=== PATIENT | male | born 1975 | race Caucasian/White ===

== ENCOUNTER 2017-10-13 12:34 | Outpatient (RCR) | payer BC, SELFPAY ==
[2017-10-13 13:51] LABS: International Normalized Ratio 2.2; Prothrombin Time (Protime)PT. 23.8 SECONDS (11.7-14.9)
== END 2017-10-13 12:45 | disposition home or self-care (01) ==
LOC: LAB 12:34
PROVIDERS: Family Provider Family Medicine; PCP Family Medicine; Visit Provider Internal Medicine Cardiovascular Disease
DX: Z95.2 Presence of prosthetic heart valve (principal); Z79.01 Long term (current) use of anticoagulants
CPT/HCPCS: 36415; 85610

== ENCOUNTER 2017-11-17 12:25 | Outpatient (RCR) | payer BC, SELFPAY ==
[2017-11-17 13:21] LABS: International Normalized Ratio 2.7; Prothrombin Time (Protime)PT. 27.9 SECONDS (11.7-14.9)
== END 2017-11-17 13:00 | disposition home or self-care (01) ==
LOC: LAB 12:25
PROVIDERS: Family Provider Family Medicine; PCP Family Medicine; Visit Provider Internal Medicine Cardiovascular Disease
DX: Z95.2 Presence of prosthetic heart valve (principal); Z79.01 Long term (current) use of anticoagulants
CPT/HCPCS: 36415; 85610

== ENCOUNTER 2017-12-12 11:46 | Outpatient (RCR) | payer BC, SELFPAY ==
[2017-11-28 12:49] LABS: International Normalized Ratio 1.7
[2017-12-12 13:33] LABS: International Normalized Ratio 2.6; Prothrombin Time (Protime)PT. 28.2 SECONDS (11.7-14.9)
== END 2017-12-12 12:00 | disposition home or self-care (01) ==
LOC: LAB 11:46
PROVIDERS: Family Provider Family Medicine; PCP Family Medicine; Visit Provider Internal Medicine Cardiovascular Disease
DX: Z95.2 Presence of prosthetic heart valve (principal); Z79.01 Long term (current) use of anticoagulants
CPT/HCPCS: 36415; 85610

== ENCOUNTER 2018-01-10 11:50 | Outpatient (RCR) | payer BC, SELFPAY ==
[2018-01-10 12:38] LABS: International Normalized Ratio 2.5; Prothrombin Time (Protime)PT. 27.5 SECONDS (11.7-14.9)
== END 2018-01-10 12:00 | disposition home or self-care (01) ==
LOC: LAB 11:50
PROVIDERS: Family Provider Family Medicine; PCP Family Medicine; Visit Provider Internal Medicine Cardiovascular Disease
DX: Z95.2 Presence of prosthetic heart valve (principal); Z79.01 Long term (current) use of anticoagulants
CPT/HCPCS: 36415; 85610

== ENCOUNTER 2018-02-10 12:18 | Outpatient (RCR) | payer BC, SELFPAY ==
[2018-02-10 12:54] LABS: International Normalized Ratio 2.9; Prothrombin Time (Protime)PT. 30.6 SECONDS (11.7-14.9)
== END 2018-02-10 13:00 | disposition home or self-care (01) ==
LOC: LAB 12:18
PROVIDERS: Family Provider Family Medicine; PCP Family Medicine; Visit Provider Internal Medicine Cardiovascular Disease
DX: Z95.2 Presence of prosthetic heart valve (principal); Z79.01 Long term (current) use of anticoagulants
CPT/HCPCS: 36415; 85610

== ENCOUNTER 2018-03-14 12:18 | Outpatient (RCR) | payer BC, SELFPAY ==
[2018-03-14 14:35] LABS: International Normalized Ratio 2.7; Prothrombin Time (Protime)PT. 28.6 SECONDS (11.7-14.9)
== END 2018-03-14 13:00 | disposition home or self-care (01) ==
LOC: LAB 12:18
PROVIDERS: Family Provider Family Medicine; PCP Family Medicine; Visit Provider Internal Medicine Cardiovascular Disease
DX: Z95.2 Presence of prosthetic heart valve (principal); Z79.01 Long term (current) use of anticoagulants
CPT/HCPCS: 36415; 85610

== ENCOUNTER 2018-04-14 11:46 | Outpatient (RCR) | payer BC, SELFPAY ==
[2018-04-14 12:54] LABS: International Normalized Ratio 2.7; Prothrombin Time (Protime)PT. 28.6 SECONDS (11.7-14.9)
== END 2018-04-14 13:00 | disposition home or self-care (01) ==
LOC: LAB 11:46
PROVIDERS: Family Provider Family Medicine; PCP Family Medicine; Visit Provider Internal Medicine Cardiovascular Disease
DX: Z95.2 Presence of prosthetic heart valve (principal); Z79.01 Long term (current) use of anticoagulants
CPT/HCPCS: 36415; 85610

== ENCOUNTER 2018-05-18 12:55 | Outpatient (RCR) | payer BC, SELFPAY ==
[2018-05-18 13:43] LABS: International Normalized Ratio 2.4; Prothrombin Time (Protime)PT. 26.5 SECONDS (11.7-14.9)
== END 2018-05-18 14:00 | disposition home or self-care (01) ==
LOC: LAB 12:55
PROVIDERS: Family Provider Family Medicine; PCP Family Medicine; Visit Provider Internal Medicine Cardiovascular Disease
DX: Z95.2 Presence of prosthetic heart valve (principal); Z79.01 Long term (current) use of anticoagulants
CPT/HCPCS: 36415; 85610

== ENCOUNTER 2018-06-23 13:28 | Outpatient (RCR) | payer BC, SELFPAY ==
[2018-06-23 14:42] LABS: International Normalized Ratio 2.4
== END 2018-06-23 15:00 | disposition home or self-care (01) ==
LOC: LAB 13:28
PROVIDERS: Family Provider Family Medicine; PCP Family Medicine; Visit Provider Internal Medicine Cardiovascular Disease
DX: Z95.2 Presence of prosthetic heart valve (principal); Z79.01 Long term (current) use of anticoagulants
CPT/HCPCS: 36415; 85610

== ENCOUNTER 2018-07-24 12:50 | Outpatient (RCR) | payer BC, SELFPAY ==
[2018-07-24 13:30] LABS: International Normalized Ratio 2.5
== END 2018-07-24 14:00 | disposition home or self-care (01) ==
LOC: LAB 12:50
PROVIDERS: Family Provider Family Medicine; PCP Family Medicine; Referring Provider Internal Medicine Cardiovascular Disease; Visit Provider Internal Medicine Cardiovascular Disease
DX: Z95.2 Presence of prosthetic heart valve (principal); Z79.01 Long term (current) use of anticoagulants
CPT/HCPCS: 36415; 85610

== ENCOUNTER 2018-08-29 12:20 | Outpatient (RCR) | payer BC, SELFPAY ==
[2018-08-29 13:52] LABS: International Normalized Ratio 2.7; Prothrombin Time (Protime)PT. 28.5 SECONDS (11.7-14.9)
== END 2018-08-29 13:00 | disposition home or self-care (01) ==
LOC: LAB 12:20
PROVIDERS: Family Provider Family Medicine; PCP Family Medicine; Referring Provider Internal Medicine Cardiovascular Disease; Visit Provider Internal Medicine Cardiovascular Disease
DX: Z95.2 Presence of prosthetic heart valve (principal); Z79.01 Long term (current) use of anticoagulants
CPT/HCPCS: 36415; 85610

== ENCOUNTER 2018-09-28 11:48 | Outpatient (RCR) | payer BC, SELFPAY ==
[2018-09-28 13:21] LABS: International Normalized Ratio 2.5
== END 2018-09-28 12:00 | disposition home or self-care (01) ==
LOC: LAB 11:48
PROVIDERS: Family Provider Family Medicine; PCP Family Medicine; Referring Provider Internal Medicine Cardiovascular Disease; Visit Provider Internal Medicine Cardiovascular Disease
DX: Z95.2 Presence of prosthetic heart valve (principal); Z79.01 Long term (current) use of anticoagulants
CPT/HCPCS: 36415; 85610

== ENCOUNTER 2018-10-30 11:43 | Outpatient (RCR) | payer BC, SELFPAY ==
[2018-10-16 15:39] VITALS: BMI 32.7
[2018-10-30 12:49] LABS: International Normalized Ratio 2.2; Prothrombin Time (Protime)PT. 24.3 SECONDS (11.7-14.9)
== END 2018-11-23 14:20 | disposition home or self-care (01) ==
LOC: LAB 11:43
PROVIDERS: Family Provider Family Medicine; PCP Family Medicine; Referring Provider Internal Medicine Cardiovascular Disease; Visit Provider Internal Medicine Cardiovascular Disease
DX: I47.1 Supraventricular tachycardia (principal); Z95.2 Presence of prosthetic heart valve; Z79.01 Long term (current) use of anticoagulants
CPT/HCPCS: 36415; 85610

== ENCOUNTER 2018-11-27 12:20 | Outpatient (RCR) | payer BC, SELFPAY ==
[2018-10-16 15:39] VITALS: BMI 32.7
[2018-11-27 13:57] LABS: International Normalized Ratio 2.8; Prothrombin Time (Protime)PT. 29.9 SECONDS (11.7-14.9)
== END 2018-11-27 13:20 | disposition home or self-care (01) ==
LOC: LAB 12:20
PROVIDERS: Family Provider Family Medicine; PCP Family Medicine; Referring Provider Internal Medicine Cardiovascular Disease; Visit Provider Internal Medicine Cardiovascular Disease
DX: I47.1 Supraventricular tachycardia (principal); Z95.2 Presence of prosthetic heart valve; Z79.01 Long term (current) use of anticoagulants
CPT/HCPCS: 36415; 85610

== ENCOUNTER 2018-12-26 11:48 | Outpatient (RCR) | payer BC, SELFPAY ==
[2018-10-16 15:39] VITALS: BMI 32.7
[2018-12-26 13:48] LABS: International Normalized Ratio 2.5; Prothrombin Time (Protime)PT. 26.9 SECONDS (11.7-14.9)
== END 2019-01-23 16:00 | disposition home or self-care (01) ==
LOC: LAB 11:48
PROVIDERS: Family Provider Family Medicine; PCP Family Medicine; Referring Provider Internal Medicine Cardiovascular Disease; Visit Provider Internal Medicine Cardiovascular Disease
DX: I47.1 Supraventricular tachycardia (principal); Z95.2 Presence of prosthetic heart valve; Z79.01 Long term (current) use of anticoagulants
CPT/HCPCS: 36415; 85610

== ENCOUNTER 2019-01-30 11:46 | Outpatient (RCR) | payer BC, SELFPAY ==
[2018-10-16 15:39] VITALS: BMI 32.7
[2019-01-30 13:15] LABS: International Normalized Ratio 2.4; Prothrombin Time (Protime)PT. 26.3 SECONDS (11.7-14.9)
== END 2019-01-30 12:46 | disposition home or self-care (01) ==
LOC: LAB 11:46
PROVIDERS: Family Provider Family Medicine; PCP Family Medicine; Referring Provider Internal Medicine Cardiovascular Disease; Visit Provider Internal Medicine Cardiovascular Disease
DX: I47.1 Supraventricular tachycardia (principal); Z95.2 Presence of prosthetic heart valve; Z79.01 Long term (current) use of anticoagulants
CPT/HCPCS: 36415; 85610

== ENCOUNTER 2019-03-01 11:59 | Outpatient (RCR) | payer BC, SELFPAY ==
[2018-10-16 15:39] VITALS: BMI 32.7
[2019-03-01 13:16] LABS: International Normalized Ratio 2.8; Prothrombin Time (Protime)PT. 29.3 SECONDS (11.7-14.9)
== END 2019-03-01 12:00 | disposition home or self-care (01) ==
LOC: LAB 11:59
PROVIDERS: Family Provider Family Medicine; PCP Family Medicine; Referring Provider Internal Medicine Cardiovascular Disease; Visit Provider Internal Medicine Cardiovascular Disease
DX: I47.1 Supraventricular tachycardia (principal); Z95.2 Presence of prosthetic heart valve; Z79.01 Long term (current) use of anticoagulants
CPT/HCPCS: 36415; 85610

== ENCOUNTER 2019-04-05 12:13 | Outpatient (RCR) | payer BC, SELFPAY ==
[2018-10-16 15:39] VITALS: BMI 32.7
[2019-04-05 13:41] LABS: International Normalized Ratio 2.4; Prothrombin Time (Protime)PT. 25.9 SECONDS (11.7-14.9)
== END 2019-04-25 06:13 | disposition home or self-care (01) ==
LOC: LAB 12:13
PROVIDERS: Family Provider Family Medicine; PCP Family Medicine; Referring Provider Internal Medicine Cardiovascular Disease; Visit Provider Internal Medicine Cardiovascular Disease
DX: I47.1 Supraventricular tachycardia (principal); Z79.01 Long term (current) use of anticoagulants; Z95.2 Presence of prosthetic heart valve
CPT/HCPCS: 36415; 85610

== ENCOUNTER 2019-04-30 11:44 | Outpatient (RCR) | payer BC, SELFPAY ==
[2018-10-16 15:39] VITALS: BMI 32.7
[2019-04-27 13:19] VITALS: BMI 31.3
[2019-04-30 13:36] LABS: International Normalized Ratio 2.9; Prothrombin Time (Protime)PT. 30.1 SECONDS (11.7-14.9)
== END 2019-04-30 13:00 | disposition home or self-care (01) ==
LOC: LAB 11:44
PROVIDERS: Family Provider Family Medicine; PCP Family Medicine; Referring Provider Internal Medicine Cardiovascular Disease; Visit Provider Internal Medicine Cardiovascular Disease
DX: I47.1 Supraventricular tachycardia (principal); Z79.01 Long term (current) use of anticoagulants; Z95.2 Presence of prosthetic heart valve
CPT/HCPCS: 36415; 85610

== ENCOUNTER → 2019-05-09 07:37 | Outpatient (CLI) | payer BC, SELFPAY ==
[2019-04-27 13:19] VITALS: BMI 31.3
[2019-05-09 09:09] LABS: AST(SGOT) 23 U/L (15-37); Alanine Aminotransfer ALT/SGPT 39 U/L (16-61); Albumin, Serum 3.8 g/dL (3.2-5.0); Alkaline Phosphatase 87 U/L (45-117); Bilirubin, Direct 0.16 mg/dL (0.00-0.30); Cholesterol 187 mg/dL (200); Globulin 3.1 g/dL (2.2-4.2); High Density Lipoprotein 41 mg/dL; Protein, Total 6.9 g/dL (6.4-8.2); Triglycerides 183 mg/dL; Very Low Density Lipoprotein 37 mg/dL (5-40)
== END ==
PROVIDERS: Family Provider Family Medicine; PCP Family Medicine; Referring Provider Internal Medicine Cardiovascular Disease; Visit Provider Internal Medicine Cardiovascular Disease
DX: Z13.220 Encounter for screening for lipoid disorders (principal)
CPT/HCPCS: 36415; 80061; 80076

== ENCOUNTER → 2019-05-18 12:55 | Outpatient (CLI) | payer BC, SELFPAY ==
[2019-04-27 13:19] VITALS: BMI 31.3
--- NOTE | 2019-05-18 12:56 | ECHOD_ITS ---
Reason For Study: Valve Replacement Eval Procedure This was a 2D Doppler, Color Flow transthoracic echocardiogram. Exam performed in department. Left Ventricle Normal size and thickness. The estimated ejection fraction is 65 %. Normal diastology for age. No regional wall motion abnormalities noted. Right Ventricle Mildly dilated right ventricle. Normal systolic function. Atria Normal left atrium. Normal right atrium. Normal atrial septum. Mitral Valve The mitral valve is structurally normal. No prolapse or stenosis seen. Tricuspid Valve Normal tricuspid valve. Mild (1+) tricuspid valve insufficiency. Right ventricular systolic pressure estimated to be 30 mmHg. Aortic Valve Peak aortic valve gradient 27 mmHg. Mean aortic valve gradient 15 mmHg. Normal prosthetic aortic valve. Pulmonic Valve Normal pulmonic valve. Great Vessels Normal aortic root. Normal arch. Normal inferior vena cava. Inferior vena cava collapse with sniff. Pericardium/Pleural No pericardial effusion. MMode/2D Measurements & Calculations LVIDd: 5.3 cm IVSd: 1.0 cm LVOT diam: 2.2 cm LVIDs: 3.3 cm LVPWd: 0.95 cm LVOT area: 3.8 cm2 RVDd: 4.8 cm FS: 37.3 % Ao root diam: 3.2 cm LAV(MOD-bp): 52.8 ml LA A4 area: 17.3 cm2 LAV(MOD-bp) Indexed: 22.1 ml/m2 LAV(MOD-sp2): 55.5 ml LAV(MOD-sp4): 50.2 ml LA dimension(2D): 4.1 cm RA A4 area: 20.7 cm2 Doppler Measurements & Calculations MV E max alejo: 113.7 cm/sec Lat Peak E' Alejo: 12.6 cm/sec Med Peak E' Alejo: 10.0 cm/sec MV A max alejo: 53.8 cm/sec E/E' lat: 9.0 E/E' med: 11.4 MV E/A: 2.1 Ao V2 max: 257.3 cm/sec LV V1 max: 164.8 cm/sec SV(LVOT): 136.6 ml Ao max P.5 mmHg LV V1 max P.9 mmHg Ao V2 mean: 185.3 cm/sec LV V1 mean P.6 mmHg Ao mean P.1 mmHg LV V1 mean: 123.2 cm/sec Ao V2 VTI: 55.6 cm LV V1 VTI: 35.5 cm JAMES(I,D): 2.5 cm2 JAMES(V,D): 2.5 cm2 PA V2 max: 104.0 cm/sec TR max alejo: 249.8 cm/sec TR max P.0 mmHg Interpretation Summary The estimated ejection fraction is 65 %. Normal diastology for age. Mildly dilated right ventricle. Mild (1+) tricuspid valve insufficiency. Right ventricular systolic pressure estimated to be 30 mmHg. Normal prosthetic aortic valve. Compared to echo report dated 04/13/2017, no appreciable changes noted. Ordering Physician: Alejandro Swenson Referring Physician: Demond March Performed By: Doris Alarcon RDCS, RVT
== END ==
PROVIDERS: Family Provider Family Medicine; PCP Family Medicine; Referring Provider Internal Medicine Cardiovascular Disease; Visit Provider Internal Medicine Cardiovascular Disease
DX: I45.6 Pre-excitation syndrome (principal); I47.1 Supraventricular tachycardia; Z79.01 Long term (current) use of anticoagulants; Z95.2 Presence of prosthetic heart valve; Z98.890 Other specified postprocedural states; Z87.74 Personal history of (corrected) congenital malformations of heart and circulatory system
CPT/HCPCS: 93306

== ENCOUNTER 2019-06-11 12:22 | Outpatient (RCR) | payer BC, SELFPAY ==
[2019-04-27 13:19] VITALS: BMI 31.3
[2019-06-11 13:15] LABS: International Normalized Ratio 2.8; Prothrombin Time (Protime)PT. 29.3 SECONDS (11.7-14.9)
== END 2019-06-11 14:00 | disposition home or self-care (01) ==
LOC: LAB 12:22
PROVIDERS: Family Provider Family Medicine; PCP Family Medicine; Referring Provider Internal Medicine Cardiovascular Disease; Visit Provider Internal Medicine Cardiovascular Disease
DX: I47.1 Supraventricular tachycardia (principal); Z79.01 Long term (current) use of anticoagulants; Z95.2 Presence of prosthetic heart valve
CPT/HCPCS: 36415; 85610

== ENCOUNTER 2019-07-16 11:45 | Outpatient (RCR) | payer BC, SELFPAY ==
[2019-04-27 13:19] VITALS: BMI 31.3
[2019-07-16 13:05] LABS: International Normalized Ratio 2.6; Prothrombin Time (Protime)PT. 28.3 SECONDS (11.7-14.9)
== END 2019-07-16 18:00 | disposition home or self-care (01) ==
LOC: LAB 11:45
PROVIDERS: Family Provider Family Medicine; PCP Family Medicine; Referring Provider Internal Medicine Cardiovascular Disease; Visit Provider Internal Medicine Cardiovascular Disease
DX: I47.1 Supraventricular tachycardia (principal); Z79.01 Long term (current) use of anticoagulants; Z95.2 Presence of prosthetic heart valve
CPT/HCPCS: 36415; 85610

== ENCOUNTER 2019-08-16 11:52 | Outpatient (RCR) | payer BC, SELFPAY ==
[2019-04-27 13:19] VITALS: BMI 31.3
[2019-08-16 12:56] LABS: International Normalized Ratio 2.4; Prothrombin Time (Protime)PT. 26.1 SECONDS (11.7-14.9)
== END 2019-08-16 18:00 | disposition home or self-care (01) ==
LOC: LAB 11:52
PROVIDERS: Family Provider Family Medicine; PCP Family Medicine; Referring Provider Internal Medicine Cardiovascular Disease; Visit Provider Internal Medicine Cardiovascular Disease
DX: I47.1 Supraventricular tachycardia (principal); Z79.01 Long term (current) use of anticoagulants; Z95.2 Presence of prosthetic heart valve
CPT/HCPCS: 36415; 85610

== ENCOUNTER 2019-09-10 11:48 | Outpatient (RCR) | payer BC, SELFPAY ==
[2019-04-27 13:19] VITALS: BMI 31.3
[2019-09-10 12:33] LABS: International Normalized Ratio 2.6; Prothrombin Time (Protime)PT. 27.8 SECONDS (11.7-14.9)
== END 2019-09-10 18:00 | disposition home or self-care (01) ==
LOC: LAB 11:48
PROVIDERS: Family Provider Family Medicine; PCP Family Medicine; Referring Provider Internal Medicine Cardiovascular Disease; Visit Provider Internal Medicine Cardiovascular Disease
DX: I47.1 Supraventricular tachycardia (principal); Z79.01 Long term (current) use of anticoagulants; Z95.2 Presence of prosthetic heart valve
CPT/HCPCS: 36415; 85610

== ENCOUNTER 2019-10-15 14:34 | Outpatient (RCR) | payer BC, SELFPAY ==
[2019-04-27 13:19] VITALS: BMI 31.3
[2019-10-15 15:46] LABS: International Normalized Ratio 2.5; Prothrombin Time (Protime)PT. 27.2 SECONDS (11.7-14.9)
== END 2019-10-15 18:00 | disposition home or self-care (01) ==
LOC: LAB 14:34
PROVIDERS: Family Provider Family Medicine; PCP Family Medicine; Referring Provider Internal Medicine Cardiovascular Disease; Visit Provider Internal Medicine Cardiovascular Disease
DX: I47.1 Supraventricular tachycardia (principal); Z79.01 Long term (current) use of anticoagulants; Z95.2 Presence of prosthetic heart valve
CPT/HCPCS: 36415; 85610

== ENCOUNTER 2019-11-08 13:44 | Outpatient (RCR) | payer BC, SELFPAY ==
[2019-04-27 13:19] VITALS: BMI 31.3
[2019-11-08 13:27] VITALS: BMI 32.6
[2019-11-08 15:00] LABS: International Normalized Ratio 2.7; Prothrombin Time (Protime)PT. 28.9 SECONDS (11.7-14.9)
== END 2019-11-08 18:00 | disposition home or self-care (01) ==
LOC: LAB 13:44
PROVIDERS: Family Provider Family Medicine; PCP Family Medicine; Referring Provider Internal Medicine Cardiovascular Disease; Visit Provider Internal Medicine Cardiovascular Disease
DX: I47.1 Supraventricular tachycardia (principal); Z98.890 Other specified postprocedural states; Z87.74 Personal history of (corrected) congenital malformations of heart and circulatory system; I45.6 Pre-excitation syndrome; Z79.01 Long term (current) use of anticoagulants; Z95.2 Presence of prosthetic heart valve
CPT/HCPCS: 36415; 85610

== ENCOUNTER 2019-12-12 12:20 | Outpatient (RCR) | payer BC, SELFPAY ==
[2019-12-12 12:43] LABS: International Normalized Ratio 2.6; Prothrombin Time (Protime)PT. 27.9 SECONDS (11.7-14.9)
== END 2019-12-12 18:00 | disposition home or self-care (01) ==
LOC: LAB 12:20
PROVIDERS: Family Provider Family Medicine; PCP Family Medicine; Referring Provider Internal Medicine Cardiovascular Disease; Visit Provider Internal Medicine Cardiovascular Disease
DX: I47.1 Supraventricular tachycardia (principal); I45.6 Pre-excitation syndrome; Z98.890 Other specified postprocedural states; Z87.74 Personal history of (corrected) congenital malformations of heart and circulatory system; Z95.2 Presence of prosthetic heart valve; Z79.01 Long term (current) use of anticoagulants
CPT/HCPCS: 36415; 85610

== ENCOUNTER 2020-02-14 11:42 | Outpatient (RCR) | payer BC, SELFPAY ==
[2020-02-14 12:23] LABS: International Normalized Ratio 2.3; Prothrombin Time (Protime)PT. 25.2 SECONDS (11.7-14.9)
== END 2020-02-14 18:00 | disposition home or self-care (01) ==
LOC: LAB 11:42
PROVIDERS: Family Provider Family Medicine; PCP Family Medicine; Referring Provider Internal Medicine Cardiovascular Disease; Visit Provider Internal Medicine Cardiovascular Disease
DX: I47.1 Supraventricular tachycardia (principal); I45.6 Pre-excitation syndrome; Z98.890 Other specified postprocedural states; Z87.74 Personal history of (corrected) congenital malformations of heart and circulatory system; Z95.2 Presence of prosthetic heart valve; Z79.01 Long term (current) use of anticoagulants
CPT/HCPCS: 36415; 85610

== ENCOUNTER 2020-03-25 11:43 | Outpatient (RCR) | payer BC, SELFPAY ==
[2020-03-25 12:37] LABS: International Normalized Ratio 2.5; Prothrombin Time (Protime)PT. 26.7 SECONDS (11.7-14.9)
== END 2020-03-25 18:00 | disposition home or self-care (01) ==
LOC: LAB 11:43
PROVIDERS: Family Provider Family Medicine; PCP Family Medicine; Referring Provider Internal Medicine Cardiovascular Disease; Visit Provider Internal Medicine Cardiovascular Disease
DX: I47.1 Supraventricular tachycardia (principal); Z98.890 Other specified postprocedural states; I45.6 Pre-excitation syndrome; Z87.74 Personal history of (corrected) congenital malformations of heart and circulatory system; Z95.2 Presence of prosthetic heart valve; Z79.01 Long term (current) use of anticoagulants
CPT/HCPCS: 36415; 85610

== ENCOUNTER 2020-05-13 13:28 | Outpatient (RCR) | payer BC, SELFPAY ==
[2020-05-13 14:22] LABS: International Normalized Ratio 2.5; Prothrombin Time (Protime)PT. 26.4 SECONDS (11.7-14.9)
== END 2020-05-26 18:00 | disposition home or self-care (01) ==
LOC: LAB 13:28
PROVIDERS: Family Provider Family Medicine; PCP Family Medicine; Referring Provider Internal Medicine Cardiovascular Disease; Visit Provider Internal Medicine Cardiovascular Disease
DX: I47.1 Supraventricular tachycardia (principal); I45.6 Pre-excitation syndrome; Z95.2 Presence of prosthetic heart valve; Z79.01 Long term (current) use of anticoagulants; Z98.890 Other specified postprocedural states; Z87.74 Personal history of (corrected) congenital malformations of heart and circulatory system
CPT/HCPCS: 36415; 85610

== ENCOUNTER 2020-06-23 12:14 | Outpatient (RCR) | payer BC, SELFPAY ==
[2020-05-13 09:37] VITALS: BMI 32.0
[2020-06-23 14:18] LABS: International Normalized Ratio 2.2; Prothrombin Time (Protime)PT. 23.8 SECONDS (11.7-14.9)
== END 2020-06-23 18:00 | disposition home or self-care (01) ==
LOC: LAB 12:14
PROVIDERS: Family Provider Family Medicine; PCP Family Medicine; Referring Provider Internal Medicine Cardiovascular Disease; Visit Provider Internal Medicine Cardiovascular Disease
DX: I47.1 Supraventricular tachycardia (principal); I45.6 Pre-excitation syndrome; Z95.2 Presence of prosthetic heart valve; Z79.01 Long term (current) use of anticoagulants; Z98.890 Other specified postprocedural states; Z87.74 Personal history of (corrected) congenital malformations of heart and circulatory system
CPT/HCPCS: 36415; 85610

== ENCOUNTER 2020-08-18 11:45 | Outpatient (RCR) | payer BC, SELFPAY ==
[2020-05-13 09:37] VITALS: BMI 32.0
[2020-08-18 14:06] LABS: International Normalized Ratio 2.3; Prothrombin Time (Protime)PT. 24.4 SECONDS (11.7-14.9)
== END 2020-08-18 18:00 | disposition home or self-care (01) ==
LOC: LAB 11:45
PROVIDERS: Family Provider Family Medicine; PCP Family Medicine; Referring Provider Internal Medicine Cardiovascular Disease; Visit Provider Internal Medicine Cardiovascular Disease
DX: I47.1 Supraventricular tachycardia (principal); Z98.890 Other specified postprocedural states; Z87.74 Personal history of (corrected) congenital malformations of heart and circulatory system; I45.6 Pre-excitation syndrome; Z95.2 Presence of prosthetic heart valve; Z79.01 Long term (current) use of anticoagulants
CPT/HCPCS: 36415; 85610

== ENCOUNTER 2020-10-06 12:42 | Outpatient (RCR) | payer OTHER, SELFPAY ==
[2020-05-13 09:37] VITALS: BMI 32.0
[2020-10-06 13:53] LABS: International Normalized Ratio 2.3; Prothrombin Time (Protime)PT. 24.9 SECONDS (11.7-14.9)
== END 2020-10-06 18:00 | disposition home or self-care (01) ==
LOC: LAB 12:42
PROVIDERS: Family Provider Family Medicine; PCP Family Medicine; Referring Provider Internal Medicine Cardiovascular Disease; Visit Provider Internal Medicine Cardiovascular Disease
DX: I47.1 Supraventricular tachycardia (principal); I45.6 Pre-excitation syndrome; Z95.2 Presence of prosthetic heart valve; Z79.01 Long term (current) use of anticoagulants; Z98.890 Other specified postprocedural states; Z87.74 Personal history of (corrected) congenital malformations of heart and circulatory system
CPT/HCPCS: 36415; 85610

== ENCOUNTER 2020-11-07 14:00 | Outpatient (RCR) | payer OTHER, SELFPAY ==
[2020-05-13 09:37] VITALS: BMI 32.0
[2020-11-07 13:36] VITALS: BMI 33.3
[2020-11-07 14:41] LABS: International Normalized Ratio 2.7; Prothrombin Time (Protime)PT. 28.3 SECONDS (11.7-14.9)
== END 2020-11-07 18:00 | disposition home or self-care (01) ==
LOC: LAB 14:00
PROVIDERS: Family Provider Family Medicine; PCP Family Medicine; Referring Provider Internal Medicine Cardiovascular Disease; Visit Provider Internal Medicine Cardiovascular Disease
DX: Z95.2 Presence of prosthetic heart valve (principal); Z79.01 Long term (current) use of anticoagulants
CPT/HCPCS: 36415; 85610

== ENCOUNTER 2020-12-19 13:28 | Outpatient (RCR) | payer OTHER, SELFPAY | END 2021-03-03 23:59 | LOC: IMMUN 13:28 | PROVIDERS: PCP Family Medicine; Referring Provider Family Medicine; Visit Provider Family Medicine | DX: Z23 Encounter for immunization (principal) | CPT/HCPCS: 0001A; 0002A; 91300 ==

== ENCOUNTER 2020-12-19 13:37 | Outpatient (RCR) | payer OTHER, SELFPAY ==
[2020-12-19 14:45] LABS: International Normalized Ratio 2.3; Prothrombin Time (Protime)PT. 24.7 SECONDS (11.7-14.9)
== END 2020-12-19 18:00 | disposition home or self-care (01) ==
LOC: LAB 13:37
PROVIDERS: Family Provider Family Medicine; PCP Family Medicine; Referring Provider Internal Medicine Cardiovascular Disease; Visit Provider Internal Medicine Cardiovascular Disease
DX: Z95.2 Presence of prosthetic heart valve (principal); Z79.01 Long term (current) use of anticoagulants
CPT/HCPCS: 36415; 85610

== ENCOUNTER 2021-02-02 12:16 | Outpatient (RCR) | payer OTHER, SELFPAY ==
[2021-02-02 13:10] LABS: International Normalized Ratio 2.2; Prothrombin Time (Protime)PT. 23.7 SECONDS (11.7-14.9)
== END 2021-02-02 18:00 | disposition home or self-care (01) ==
LOC: LAB 12:16
PROVIDERS: Family Provider Family Medicine; PCP Family Medicine; Referring Provider Internal Medicine Cardiovascular Disease; Visit Provider Internal Medicine Cardiovascular Disease
DX: Z95.2 Presence of prosthetic heart valve (principal); Z79.01 Long term (current) use of anticoagulants
CPT/HCPCS: 36415; 85610

== ENCOUNTER 2021-03-31 12:49 | Outpatient (RCR) | payer OTHER, SELFPAY ==
[2021-03-31 13:38] LABS: International Normalized Ratio 2.3; Prothrombin Time (Protime)PT. 24.2 SECONDS (11.7-14.9)
== END 2021-03-31 18:00 | disposition home or self-care (01) ==
LOC: LAB 12:49
PROVIDERS: Family Provider Family Medicine; PCP Family Medicine; Referring Provider Internal Medicine Cardiovascular Disease; Visit Provider Internal Medicine Cardiovascular Disease
DX: Z95.2 Presence of prosthetic heart valve (principal); Z79.01 Long term (current) use of anticoagulants
CPT/HCPCS: 36415; 85610

== ENCOUNTER 2021-05-25 11:50 | Outpatient (RCR) | payer OTHER, SELFPAY ==
[2021-05-25 12:47] LABS: International Normalized Ratio 2.2; Prothrombin Time (Protime)PT. 23.9 SECONDS (11.7-14.9)
== END 2021-05-25 18:00 | disposition home or self-care (01) ==
LOC: LAB 11:50
PROVIDERS: Family Provider Family Medicine; PCP Family Medicine; Referring Provider Internal Medicine Cardiovascular Disease; Visit Provider Internal Medicine Cardiovascular Disease
DX: Z95.2 Presence of prosthetic heart valve (principal); Z79.01 Long term (current) use of anticoagulants
CPT/HCPCS: 36415; 85610

== ENCOUNTER 2021-07-28 12:20 | Outpatient (RCR) | payer OTHER, SELFPAY ==
[2021-05-26 19:48] VITALS: BMI 33.3
[2021-07-28 14:58] LABS: International Normalized Ratio 2.4
== END 2021-08-25 18:00 | disposition home or self-care (01) ==
LOC: LAB 12:20
PROVIDERS: Family Provider Family Medicine; PCP Family Medicine; Referring Provider Internal Medicine Cardiovascular Disease; Visit Provider Internal Medicine Cardiovascular Disease
DX: Z95.2 Presence of prosthetic heart valve (principal); Z79.01 Long term (current) use of anticoagulants
CPT/HCPCS: 36415; 85610

== ENCOUNTER 2021-09-28 10:45 | Inpatient (IN) | payer BC, SELFPAY ==
[2021-09-28] VITALS (12 sets, daily range): BP systolic 118–142; BP diastolic 63–97; PULSE 55–106; RESP 11–18; TEMP 36.3–36.8; O2SAT 97–100; BMI 34.8; BMI 33.2
--- NOTE | 2021-09-28 11:14 | RAD_ITS ---
STUDY: X-RAY - LEFT KNEE REASON FOR EXAM: Left knee pain, left knee injury. TECHNIQUE: 4 view(s) of the knee. COMPARISON: None. FINDINGS: There is a mildly comminuted mildly angulated fracture of the distal femoral diaphysis. There is no demonstrated fracture of the proximal tibia and fibula. There is no demonstrated abnormality of the proximal tibiofibular articulation. There is lateral dislocation of the patella. There is a posterior intra-articular body. RAD/Knee 4 or More Views IMPRESSION: Distal femur fracture. Lateral dislocation of the patella. Electronically Signed: Te Raya MD at 12:40 EST Tel , Service support ,
--- NOTE | 2021-09-28 11:15 | ED.VIS.LOWEX ---
HPI History of Present Illness HPI Narrative: Patient presents with left knee injury that occurred today. Patient states he was jogging today when he slipped on a patch of ice. Patient states he fell and injured his left knee. Patient describes the pain as aching. Patient states the pain is worse with any attempts at movement. Patient denies any paresthesias or weakness. Patient denies any head injury or loss of consciousness. Patient denies any other injuries. 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 Migraines Paroxysmal SVT (supraventricular tachycardia) Povvb-Zjvgsrbzo-Narjf (WPW) syndrome Home Medications aspirin 81 mg PO DAILY@0800 04/22/16 [History Last Taken 09/27/21] magnesium citrate 125 mg capsule 125 mg PO BID cap 11/08/19 [History Last Taken 09/27/21] metoprolol tartrate 100 mg PO BID 09/28/21 [History Last Taken 09/27/21] warfarin 3.75 mg PO DAILY 09/28/21 [History Last Taken 09/27/21] Allergy/AdvReac Type Severity Reaction Status Date / Time No Known Allergies Allergy Verified 09/28/21 10:46 Family History Father Neg FH of ASCVD Surgical History H/O mechanical aortic valve replacement (08/10/16) History of cardiac radiofrequency ablation (RFA) (12/01/16) History of right and left heart catheterization (04/23/16) History of vasectomy Social History Smoking Status: Never smoker alcohol intake: current alcohol intake frequency: a few times a week Alcohol type: wine substance use type: does not use ROS ROS ED Constitutional Constitutional ED: Denies chills or fever(s) Eyes Eyes: Denies blurry vision or change in vision ENT ENT ED: Denies rhinorrhea or sore throat Cardiovascular Cardiovascular: Denies chest pain or palpitations Respiratory/Chest Respiratory/Chest: Denies cough or dyspnea Gastrointestinal Gastrointestinal: Denies nausea or vomiting Genitourinary Genitourinary ED: Denies dysuria or hematuria Musculoskeletal Musculoskeletal: Denies back pain or neck pain Integumentary Denies abscess or rash Neurologic Neurologic: Denies headache(s) or weakness Allergic/Immunologic Allergic/Immunologic ED: Denies mouth swelling or urticaria EXAM Physical Exam Const Vital Signs: 09/28/21 10:46 09/28/21 10:48 09/28/21 13:00 Temperature 97.3 F L Temperature Source Oral Pulse Rate 66 57 L Pulse Rate [1 (Initial Baseline)] Pulse Rate [2] Pulse Rate [3] Respiratory Rate 18 18 12 Respiratory Rate [1 (Initial Baseline)] Respiratory Rate [2] Respiratory Rate [3] Blood Pressure 142/86 H 136/63 H Blood Pressure [1 (Initial Baseline)] Blood Pressure [2] Blood Pressure [3] Blood Pressure Mean 104 Pulse Ox 100 100 Oxygen Delivery Method Room Air Nasal Cannula Oxygen Delivery Method [1 (Initial Baseline)] Oxygen Delivery Method [2] Oxygen Delivery Method [3] Oxygen Flow Rate (L/min) 2 Oxygen Flow Rate (L/min) [1 (Initial Baseline)] Oxygen Flow Rate (L/min) [2] 09/28/21 13:19 09/28/21 13:49 09/28/21 13:57 Temperature Temperature Source Pulse Rate 67 Pulse Rate [1 (Initial Baseline)] 60 Pulse Rate [2] 69 Pulse Rate [3] 66 Respiratory Rate 17 Respiratory Rate [1 (Initial Baseline)] 11 L Respiratory Rate [2] 15 Respiratory Rate [3] 14 Blood Pressure 128/72 H Blood Pressure [1 (Initial Baseline)] 138/63 H Blood Pressure [2] 135/97 H Blood Pressure [3] 125/70 H Blood Pressure Mean Pulse Ox 100 100 Oxygen Delivery Method Nasal Cannula Room Air Oxygen Delivery Method [1 (Initial Baseline)] Nasal Cannula Oxygen Delivery Method [2] Nasal Cannula Oxygen Delivery Method [3] Nasal Cannula Oxygen Flow Rate (L/min) 2 Oxygen Flow Rate (L/min) [1 (Initial Baseline)] 2 Oxygen Flow Rate (L/min) [2] 2 09/28/21 14:02 09/28/21 14:08 Temperature Temperature Source Pulse Rate 63 55 L Pulse Rate [1 (Initial Baseline)] Pulse Rate [2] Pulse Rate [3] Respiratory Rate 15 11 L Respiratory Rate [1 (Initial Baseline)] Respiratory Rate [2] Respiratory Rate [3] Blood Pressure 128/72 H 118/63 Blood Pressure [1 (Initial Baseline)] Blood Pressure [2] Blood Pressure [3] Blood Pressure Mean Pulse Ox 100 99 Oxygen Delivery Method Room Air Room Air Oxygen Delivery Method [1 (Initial Baseline)] Oxygen Delivery Method [2] Oxygen Delivery Method [3] Oxygen Flow Rate (L/min) Oxygen Flow Rate (L/min) [1 (Initial Baseline)] Oxygen Flow Rate (L/min) [2] Positive well nourished and well developed General Appearance ED: well developed HEENT Reports moist mucous membranes Extremity Extremity Narrative: There is tenderness over the anterior aspect of the left knee. The patella is dislocated laterally. There is no bony crepitance or step-off. Range of motion was limited in all motions of the left knee secondary to pain. Posterior tibial pulses are equal bilateral. Sensation was intact to light touch in all digits. There is full range of motion in all digits. Neuro oriented x3, CN's II-XII intact bilaterally, moves all extremities and no sensory deficits noted Sensorium / Orientation: alert Psych mental status grossly normal MDM MDM MDM Narrative Medical decision making narrative: Patient was given a dose of morphine here. X-rays of the left knee were obtained. There are 4 views. On my interpretation, there is a dislocation of the patella. There is also a fracture of the distal femur with mild angulation. There is no displacement. Radiologist also interpreted the x-rays and agrees. Case was discussed with Dr. Simms from orthopedics. He recommended admitting the patient to the hospitalist service and he will consult. The patient was consented for conscious sedation. Patient was advised of the risks and benefits. Patient is agreeable to sedation and reduction of his patellar dislocation. Patient was placed on continuous cardiac and pulse oximeter monitors. The patient was given a total of 70 mg of propofol. The knee was extended and the patella was reduced. Patient was placed in a knee immobilizer. Patient tolerated the procedure well. There were no hypoxic episodes. Repeat x-rays of the left knee were obtained. There are 2 views. On my interpretation, the patella is reduced. The distal femur fracture is still present but unchanged. Radiologist also interpreted the x-rays and agrees. Case was discussed with the hospitalist. He will admit the patient to his service. Patient understood and was agreeable with the plan. All questions were answered. Radiography Diagnostic Testing: Clinical Impression(s) from Imaging Studies Knee X-Ray 09/28/21 11:14 IMPRESSION: Distal femur fracture. Lateral dislocation of the patella. Electronically Signed: Te Raya MD at 12:40 EST Tel , Service support , Knee X-Ray 09/28/21 14:00 IMPRESSION: Fracture of the distal femoral diametaphysis. Reduction of the patellar dislocation with fracture of the inferior pole of the patella. Small joint effusion. Posterior intra-articular body. Electronically Signed: Te Raya MD at 14:34 EST Tel , Service support , Procedures Lower Extremity Splints Lower Extremity Splint: Knee Immobilizer Splint Fabrication: Pre-fabricated Location: Left Discharge Plan Dx/Rx/DC Orders Clinical Impression: Fracture of distal end of left femur, Dislocation of patella, left, closed Disposition Disposition: Acute Care Hospital [facility] Discharge Date/Time: 09/28/21 15:01
[2021-09-28] MEDS: Morphine 4 MG/ML Syringe IV (11:47)
[2021-09-28] MEDS: Propofol 200 MG/20 ML Vial IV BOLUS (13:24)
--- NOTE | 2021-09-28 14:00 | RAD_ITS ---
STUDY: X-RAY - LEFT KNEE REASON FOR EXAM: Left knee pain, left knee injury. TECHNIQUE: 2 view(s) of the knee. COMPARISON: Radiographs earlier today. FINDINGS: There is a mildly comminuted fracture of the distal femoral diaphysis with mild angulation and visualization of a nondisplaced fracture line into the distal femoral metaphysis. Normal visualized proximal tibia and fibula. Normal proximal tibiofibular articulation. Normal medial femorotibial compartment. Normal lateral femorotibial compartment. There is reduction of the patellar dislocation with a fracture of the inferior pole of the patella. There is a small joint effusion. There is a posterior intra-articular body. RAD/Knee 1 or 2 Views IMPRESSION: Fracture of the distal femoral diametaphysis. Reduction of the patellar dislocation with fracture of the inferior pole of the patella. Small joint effusion. Posterior intra-articular body. Electronically Signed: Te Raya MD at 14:34 EST Tel , Service support ,
--- NOTE | 2021-09-28 14:27 | NURSING ---
MED SURG MENDY LT DISTAL FEMUR FRACTURE, PATELLAR DISLOCATION
--- NOTE | 2021-09-28 15:11 | HP.PCM.HOS_ITS ---
HPI - General General Date of Admission: 09/28/21 HPI Narrative SERGE MOON, is a 45 M who presents with left leg injury. Patient was walking outside and slipped on ice and felt his left leg gave out on him. He presented to the emergency room and was found to have a left patellar fracture as well as a distal left femur fracture. Patient had his patella reduced. Dr. Simms, orthopedics, was contacted and requested medical admission and consultation to orthopedics. Patient is in good health overall and is very active. [facility], [facility] Medical History (Updated 09/28/21 @ 15:[address] 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 Paroxysmal SVT (supraventricular tachycardia) Azqwk-Ldacpudxb-Lljqx (WPW) syndrome Home Medications aspirin 81 mg PO DAILY@0800 04/22/16 [History Last Taken 09/27/21] magnesium citrate 125 mg capsule 125 mg PO BID cap 11/08/19 [History Last Taken 09/27/21] metoprolol tartrate 100 mg PO BID 09/28/21 [History Last Taken 09/27/21] warfarin 3.75 mg PO DAILY 09/28/21 [History Last Taken 09/27/21] Allergy/AdvReac Type Severity Reaction Status Date / Time No Known Allergies Allergy Verified 09/28/21 10:46 Family History Father Neg FH of ASCVD Surgical History H/O mechanical aortic valve replacement (08/10/16) History of cardiac radiofrequency ablation (RFA) (12/01/16) History of right and left heart catheterization (04/23/16) History of vasectomy Social History Smoking Status: Never smoker alcohol intake: current alcohol intake frequency: a few times a week Alcohol type: wine substance use type: does not use ROS ROS Narrative Patient has obvious pain in his left leg but overall improved with medications. ROS Vital Signs Vital Signs Vital Signs: 09/28/21 10:46 09/28/21 10:48 09/28/21 13:00 Temperature 36.3 C L Temperature Source Oral Pulse Rate 66 57 L Pulse Rate [1 (Initial Baseline)] Pulse Rate [2] Pulse Rate [3] Respiratory Rate 18 18 12 Respiratory Rate [1 (Initial Baseline)] Respiratory Rate [2] Respiratory Rate [3] Blood Pressure 142/86 H 136/63 H Blood Pressure [1 (Initial Baseline)] Blood Pressure [2] Blood Pressure [3] Blood Pressure Mean 104 Pulse Ox 100 100 Oxygen Delivery Method Room Air Nasal Cannula Oxygen Delivery Method [1 (Initial Baseline)] Oxygen Delivery Method [2] Oxygen Delivery Method [3] Oxygen Flow Rate (L/min) 2 Oxygen Flow Rate (L/min) [1 (Initial Baseline)] Oxygen Flow Rate (L/min) [2] 09/28/21 13:19 09/28/21 13:49 09/28/21 13:57 Temperature Temperature Source Pulse Rate 67 Pulse Rate [1 (Initial Baseline)] 60 Pulse Rate [2] 69 Pulse Rate [3] 66 Respiratory Rate 17 Respiratory Rate [1 (Initial Baseline)] 11 L Respiratory Rate [2] 15 Respiratory Rate [3] 14 Blood Pressure 128/72 H Blood Pressure [1 (Initial Baseline)] 138/63 H Blood Pressure [2] 135/97 H Blood Pressure [3] 125/70 H Blood Pressure Mean Pulse Ox 100 100 Oxygen Delivery Method Nasal Cannula Room Air Oxygen Delivery Method [1 (Initial Baseline)] Nasal Cannula Oxygen Delivery Method [2] Nasal Cannula Oxygen Delivery Method [3] Nasal Cannula Oxygen Flow Rate (L/min) 2 Oxygen Flow Rate (L/min) [1 (Initial Baseline)] 2 Oxygen Flow Rate (L/min) [2] 2 09/28/21 14:02 09/28/21 14:08 Temperature Temperature Source Pulse Rate 63 55 L Pulse Rate [1 (Initial Baseline)] Pulse Rate [2] Pulse Rate [3] Respiratory Rate 15 11 L Respiratory Rate [1 (Initial Baseline)] Respiratory Rate [2] Respiratory Rate [3] Blood Pressure 128/72 H 118/63 Blood Pressure [1 (Initial Baseline)] Blood Pressure [2] Blood Pressure [3] Blood Pressure Mean Pulse Ox 100 99 Oxygen Delivery Method Room Air Room Air Oxygen Delivery Method [1 (Initial Baseline)] Oxygen Delivery Method [2] Oxygen Delivery Method [3] Oxygen Flow Rate (L/min) Oxygen Flow Rate (L/min) [1 (Initial Baseline)] Oxygen Flow Rate (L/min) [2] Weight Weight: 126.3 kg Body Mass Index (BMI) 34.8 Physical Exam Const alert General Appearance: cooperative HEENT normocephalic Resp normal respiratory effort, no retractions, no use of accessory muscles and clear to auscultation bilaterally Cardio regular rate, regular rhythm, S1 normal heart sound and S2 normal heart sound GI normal to inspection, nondistended, normoactive bowel sounds, soft to palpation, non-tender and non-distended Extremity Extremity Narrative: Left lower extremity in a an immobilizer Skin no rashes or lesions noted and no wounds Neuro Neuro Narrative: Moves all extremities spontaneously. Sensation intact throughout. Psych affect normal Results Lab / Micro Data Attestation: I reviewed the patient's lab results. Radiology Impression Knee X-Ray 09/28/21 11:14 IMPRESSION: Distal femur fracture. Lateral dislocation of the patella. Electronically Signed: Te Raya MD at 12:40 EST Tel , Service support , Knee X-Ray 09/28/21 14:00 IMPRESSION: Fracture of the distal femoral diametaphysis. Reduction of the patellar dislocation with fracture of the inferior pole of the patella. Small joint effusion. Posterior intra-articular body. Electronically Signed: Te Raya MD at 14:34 EST Tel , Service support , Assessment & Plan Assessment/Plan (1) Dislocation of patella, left, closed: QUALIFIERS: Encounter type: initial encounter Qualified Code(s): S83.005A - Unspecified dislocation of left patella, initial encounter (2) Fracture of distal end of left femur: QUALIFIERS: Encounter type: initial encounter Fracture type: closed Fracture morphology: unspecified fracture morphology Qualified Code(s): S72.402A - Unspecified fracture of lower end of left femur, initial encounter for closed fracture (3) H/O mechanical aortic valve replacement: PLAN: 1. Left distal femur fracture Nonweightbearing currently in an immobilizer Consult orthopedics for surgery. Patient medically stable to proceed with surgery risk factor modification necessary at this time. I will check his INR and see what that is as I was not ordered if that does need to be vitamin K. 2. Left patellar dislocation Reduce in emergency room Further management per orthopedics 3. History of mechanical aortic valve replacement Patient stated that he had a bicuspid aortic valve and his quality life Hold off on warfarin for now with the impending surgery. Plan is to continue with warfarin after surgery but patient may need to be bridged with enoxaparin 4. VTE prophylaxis: Waiting on results of INR place SCDs for now. Charges/Coding Visit Charges Inpatient E&M: 95455 Init Hosp L2
--- NOTE | 2021-09-28 15:41 | CT_ITS ---
STUDY: CT LEFT KNEE WITHOUT CONTRAST REASON FOR EXAM: Male, 45 years old. fx -- left distal femur RADIATION DOSAGE (If Supplied By Facility): CTDIvol = ( 12.06 ) mGy, DLP = ( 483.03 ) mGycm TECHNIQUE: Transaxial CT imaging of the knee was performed. Coronal and sagittal images were reformatted. Individualized dose optimization techniques were used for this CT. COMPARISON: Left knee x-ray dated September 28, 2021 FINDINGS: Reidentification of an acute comminuted fracture the distal one third femoral shaft with the predominant fracture being oblique. The distal fracture fragment demonstrates mild anterior medial displacement, with impaction of most of the fracture fragment surfaces. An acute mildly comminuted corner fracture is present at the inferior pole of the lateral patellar facet with small displaced bony fragments at the site of injury. There is minimal lateral patellar tilt but no dislocation from the trochlear groove. A small to moderate size joint effusion is also present. The prepatellar soft tissues are mildly to moderately swollen. Mild edema of the muscle fibers around the fracture site noted. The remaining muscle fibers are unremarkable. The medial and lateral compartment spaces are mildly narrow with cortical spurring. Moderate size ossicle/loose bodies seen in the posterior intercondylar region measuring 2 cm in diameter. Normal proximal tibiofibular articulation. The quadriceps tendon is grossly normal. The patellar tendon is grossly normal. CT/Extremity Lower without Contra IMPRESSION: 1. Comminuted fracture the distal one third femoral shaft 2. Acute mildly comminuted corner fracture of the lateral patellar facet. Electronically Signed: Lit Puentes MD at 17:26 EST , Service support ,
[2021-09-28 16:04] LABS: Absolute Lymphocyte Count 0.87 X10^3/uL (0.83-4.51); Absolute Neutrophil Count 11.7 X10^3/uL (2.0-7.7); Basophil# 0.03 X10^3/uL; Basophil% 0.2 % (0-1); Eosinophil# 0.01 X10^3/uL; Eosinophils% 0.1 % (0-5); Hematocrit 41.8 % (40-54); Hemoglobin 14.7 g/dL (13.0-16.5); Lymphocyte # 0.87 X10^3/ul (0.83-4.51); Lymphocyte % 6.6 % (19-41); Mean Corp Hgb Conc 35.2 g/dL (32-36); Mean Corpuscular Hgb 29.8 pg (27.0-32.0); Mean Corpuscular Volume 84.6 fL (80-94); Mean Platelet Vol. 10.7 fl (6.2-12.0); Monocyte# 0.52 X10^3/uL; NRBC Flagged by Analyzer 0 % (0-5); Neutrophil # 11.69 X10^3/uL (2.7-7.7); Neutrophil % 88.8 % (47-70); Platelet Count 178 K/mm3 (150-450); RBC Distribution Width CV 12.5 % (11.6-14.6); RBC Distribution Width SD 37.9 fl (35.1-43.9); Red Blood Count 4.94 M/mm3 (4.6-6.2); White Blood Count 13.2 K/mm3 (4.4-11.0)
[2021-09-28 16:15] LABS: ALB/GLOB Ratio 1.2 RATIO (0.9-2.4); AST(SGOT) 37 U/L (15-37); Alanine Aminotransfer ALT/SGPT 54 U/L (16-61); Albumin, Serum 3.8 g/dL (3.2-5.0); Alkaline Phosphatase 88 U/L (45-117); Anion Gap 7 (5-15); BUN 21 mg/dL (7-18); BUN/Creat Ratio 19.1 RATIO (10-20); Calcium,Total 9.1 mg/dL (8.5-10.1); Chloride 106 mmol/L (98-107); EST Glomerular Filtration Rate 77 mL/min (>60); Est Glom Filt Rate - Afr Amer 93 mL/min (>60); Estimated Creatinine Clearance 102.42 ml/min; Globulin 3.2 g/dL (2.2-4.2); Glucose 119 mg/dL (74-106); Potassium 4.3 mmol/L (3.5-5.1); Sodium Level 139 mmol/L (136-145)
[2021-09-28 17:10] LABS: Prothrombin Time (Protime)PT. 27.7 SECONDS (11.7-14.9)
[2021-09-28 17:11] LABS: International Normalized Ratio 2.7
[2021-09-28] MEDS: Phytonadione (Vit K1) 5 MG TABLET PO (20:00)
[2021-09-28] MEDS: Magnesium Chloride 64 MG Delay Rel.Tablet 128 MG PO (22:07)
[2021-09-28] MEDS: Metoprolol Tartrate 100 MG Tablet PO (22:07)
[2021-09-28] MEDS: oxyCODONE 5 MG Tablet 10 MG PO (22:10)
[2021-09-29 02:06] VITALS: BP 120/72; PULSE 84; RESP 16; TEMP 36.7; O2SAT 98
[2021-09-29] MEDS: 0.9% Saline Lock 10 ML Syringe IV (02:14)
[2021-09-29] MEDS: Morphine 4 MG/ML Syringe IV (02:14)
[2021-09-29 05:51] LABS: Absolute Lymphocyte Count 1.45 X10^3/uL (0.83-4.51); Absolute Neutrophil Count 7.4 X10^3/uL (2.0-7.7); Basophil# 0.02 X10^3/uL; Basophil% 0.2 % (0-1); Eosinophil# 0.17 X10^3/uL; Eosinophils% 1.7 % (0-5); Hematocrit 38.3 % (40-54); Hemoglobin 13.3 g/dL (13.0-16.5); Lymphocyte # 1.45 X10^3/ul (0.83-4.51); Lymphocyte % 14.5 % (19-41); Mean Corp Hgb Conc 34.7 g/dL (32-36); Mean Corpuscular Hgb 29.4 pg (27.0-32.0); Mean Corpuscular Volume 84.7 fL (80-94); Mean Platelet Vol. 10.6 fl (6.2-12.0); Monocyte# 0.92 X10^3/uL; Monocyte% 9.2 % (0-10); NRBC Flagged by Analyzer 0 % (0-5); Neutrophil # 7.42 X10^3/uL (2.7-7.7); Neutrophil % 74.1 % (47-70); Platelet Count 167 K/mm3 (150-450); RBC Distribution Width CV 12.6 % (11.6-14.6); RBC Distribution Width SD 38.4 fl (35.1-43.9); Red Blood Count 4.52 M/mm3 (4.6-6.2)
--- NOTE | 2021-09-29 05:55 | EKG12_ITS ---
Test Reason : MORNING EKG Blood Pressure : / mmHG Vent. Rate : 084 BPM Atrial Rate : 084 BPM P-R Int : 152 ms QRS Dur : 090 ms QT Int : 352 ms P-R-T Axes : 039 002 036 degrees QTc Int : 415 ms Normal sinus rhythm Normal ECG When compared with ECG of 20-APR-2017 13:04, Sinus rhythm has replaced Atrial fibrillation Vent. rate has decreased BY 46 BPM Confirmed by ELVER STEEL, AGATHA ([id number]), publishing editor LATA HEIN ([id number]) on 10/08/2021 1:53:30 PM Referred By: MENDY Confirmed By:CAROLINA RAYA MD
[2021-09-29 06:10] LABS: ALB/GLOB Ratio 1.1 RATIO (0.9-2.4); AST(SGOT) 24 U/L (15-37); Alanine Aminotransfer ALT/SGPT 48 U/L (16-61); Albumin, Serum 3.4 g/dL (3.2-5.0); Alkaline Phosphatase 80 U/L (45-117); Anion Gap 7 (5-15); BUN 21 mg/dL (7-18); BUN/Creat Ratio 18.9 RATIO (10-20); Calcium,Total 8.6 mg/dL (8.5-10.1); Chloride 105 mmol/L (98-107); Creatinine, Serum 1.11 mg/dL (0.70-1.30); EST Glomerular Filtration Rate 76 mL/min (>60); Est Glom Filt Rate - Afr Amer 92 mL/min (>60); Glucose 133 mg/dL (74-106); Potassium 3.9 mmol/L (3.5-5.1); Protein, Total 6.4 g/dL (6.4-8.2); Sodium Level 137 mmol/L (136-145)
[2021-09-29 06:11] LABS: International Normalized Ratio 2.3; Prothrombin Time (Protime)PT. 24.2 SECONDS (11.7-14.9)
[2021-09-29 08:39] VITALS: BP 122/85; PULSE 85
[2021-09-29] MEDS: Metoprolol Tartrate 100 MG Tablet PO ×2 (08:39→20:48)
[2021-09-29 08:40] VITALS: BP 122/85; PULSE 85; RESP 16; TEMP 36.7; O2SAT 95
--- NOTE | 2021-09-29 08:42 | PN.HOSP_ITS ---
Documented by User: Dr. Radhames Alfredo MD 09/29/21 19:57 Subjective Subjective Doing well, continues to have left leg pain from his comminuted fracture of the distal one third femoral shaft as well as patellar fracture. INR today is 2.3 will have to discuss the situation with orthopedic surgery as to when they would be able to operatively repair this fracture and may need to get another dose of vitamin K. Objective Data Objective Data Vital Signs: Vital Signs Temp Pulse Resp BP Pulse Ox 98.1 F 85 16 122/85 H 98 09/29/21 02:06 09/29/21 08:39 09/29/21 02:06 09/29/21 08:39 09/29/21 02:06 Oxygen Flow Rate (L/min) [2] 2 Oxygen Flow Rate (L/min) [1 ( 2 Initial Baseline)] Oxygen Flow Rate (L/min) 2 Oxygen Delivery Method [3] Nasal Cannula Oxygen Delivery Method [2] Nasal Cannula Oxygen Delivery Method [1 ( Nasal Cannula Initial Baseline)] Oxygen Delivery Method Room Air Weight: 266 lb Body Mass Index (BMI) 33.2 Intake & Output: Intake and Output for Last 24 Hours 09/28/21 09/29/21 09/30/21 03:59 03:59 03:59 Intake Total 840 / 840 0 / 0 Output Total 300 / 300 300 / 300 Balance 540 / 540 -300 / -300 Lab / Micro Data Result Diagrams: 09/29/21 05:35 09/29/21 05:35 Labs: Laboratory Results - last 24 hr 09/28/21 15:45: WBC 13.2 H, RBC 4.94, Hgb 14.7, Hct 41.8, MCV 84.6, MCH 29.8, MCHC 35.2, RDW Std Deviation 37.9, RDW Coeff of Pamela 12.5, Plt Count 178, MPV 10.7, Immature Gran % (Auto) 0.300, Neut % (Auto) 88.8 H, Lymph % (Auto) 6.6 L, [place] % (Auto) 4.0, Eos % (Auto) 0.1, Baso % (Auto) 0.2, Absolute Neuts (auto) 11.7 H, Absolute Lymphs (auto) 0.87, Nucleated RBC % 0 09/28/21 15:45: Sodium 139, Potassium 4.3, Chloride 106, Carbon Dioxide 26.0, Anion Gap 7, BUN 21 H, Creatinine 1.10, Estim Creat Clear Calc 102.42, Est GFR (MDRD) Af Amer 93, Est GFR (MDRD) Non-Af 77, BUN/Creatinine Ratio 19.1, Glucose 119 H, Calcium 9.1, Total Bilirubin 0.80, AST 37, ALT 54, Alkaline Phosphatase 88, Total Protein 7.0, Albumin 3.8, Globulin 3.2, Albumin/Globulin Ratio 1.2 09/28/21 15:45: PT 27.7 H, INR 2.7 09/28/21 15:45: Vitamin D 25-Hydroxy 30.0 09/29/21 05:35: WBC 10.0, RBC 4.52 L, Hgb 13.3, Hct 38.3 L, MCV 84.7, MCH 29.4, MCHC 34.7, RDW Std Deviation 38.4, RDW Coeff of Pamela 12.6, Plt Count 167, MPV 10.6, Immature Gran % (Auto) 0.300, Neut % (Auto) 74.1 H, Lymph % (Auto) 14.5 L, [place] % (Auto) 9.2, Eos % (Auto) 1.7, Baso % (Auto) 0.2, Absolute Neuts (auto) 7.4, Absolute Lymphs (auto) 1.45, Nucleated RBC % 0 09/29/21 05:35: PT 24.2 H, INR 2.3 09/29/21 05:35: Sodium 137, Potassium 3.9, Chloride 105, Carbon Dioxide 25.0, Anion Gap 7, BUN 21 H, Creatinine 1.11, Estim Creat Clear Calc 101.50, Est GFR (MDRD) Af Amer 92, Est GFR (MDRD) Non-Af 76, BUN/Creatinine Ratio 18.9, Glucose 133 H, Calcium 8.6, Total Bilirubin 1.40 H, AST 24, ALT 48, Alkaline Phosphatase 80, Total Protein 6.4, Albumin 3.4, Globulin 3.0, Albumin/Globulin Ratio 1.1 09/29/21 05:35: Blood Type A POSITIVE, Antibody Screen NEGATIVE Micro: Microbiology 09/28/21 15:58 Nasal Secretion SARS-CoV-2 Antigen (Rapid) - Final Radiography Diagnostic Testing: Radiology Impression Knee X-Ray 09/28/21 11:14 IMPRESSION: Distal femur fracture. Lateral dislocation of the patella. Electronically Signed: Te Raya MD at 12:40 EST Tel , Service support , Knee X-Ray 09/28/21 14:00 IMPRESSION: Fracture of the distal femoral diametaphysis. Reduction of the patellar dislocation with fracture of the inferior pole of the patella. Small joint effusion. Posterior intra-articular body. Electronically Signed: Te Raya MD at 14:34 EST Tel , Service support , Lower Extremity CT 09/28/21 15:41 IMPRESSION: 1. Comminuted fracture the distal one third femoral shaft 2. Acute mildly comminuted corner fracture of the lateral patellar facet. Electronically Signed: Lit Puentes MD at 17:26 EST , Service support , Physical Exam Const alert, oriented x3 and no apparent distress General Appearance: cooperative HEENT normocephalic and moist oral mucous membranes Eyes PERRL, EOMs intact bilaterally and conjunctivae normal Neck supple and no JVD Resp normal respiratory effort, no retractions, no use of accessory muscles and clear to auscultation bilaterally Auscultation: Negative for crackles, rales, rhonchi or wheezes Cardio regular rate, regular rhythm, S1 normal heart sound, S2 normal heart sound and no murmurs GI soft to palpation, non-tender and non-distended; Negative for hepatosplenomegaly Extremity no clubbing, cyanosis or edema Skin no rashes or lesions noted Neuro no focal motor deficits and no sensory deficits noted Psych affect normal Appearance: appropriate Assessment & Plan Assessment/Plan (1) Fracture of distal end of left femur: QUALIFIERS: Encounter type: initial encounter Fracture morphology: unspecified fracture morphology Fracture type: closed Qualified Code(s): S72.402A - Unspecified fracture of lower end of left femur, initial encounter for closed fracture PLAN: Addendum: Dr. Alfredo I personally examined the patient and reviewed the chart. I agree with the above. 45-year-old male who fell on the ice while stepping over a curb with a twisting motion. He is had a significant fracture to the distal end of his left femur as well as dislocation of his left patella. Initially was accepted by orthopedic surgery however they felt that the intervention would be too complicated and recommended transfer to a tertiary care center with trauma surgery. We did discuss this with [facility] and they have accepted the patient and transfer however unsure as to when this will occur. His INR is elevated at 2.3 but he did receive 5 of vitamin K and will continue to hold, this is for mechanical aortic valve replacement he states that according to his doctor the INR can go as low as 1.5 for this particular valve. Charges/Coding Visit Charges Inpatient E&M: 60730 Subs Hosp L2 Documented by User: SAVAGE Sanchez 09/29/21 10:59 Objective Data Lab / Micro Data Result Diagrams: 09/29/21 05:35 09/29/21 05:35 Assessment & Plan Assessment/Plan (1) Fracture of distal end of left femur: QUALIFIERS: Encounter type: initial encounter Fracture morphology: unspecified fracture morphology Fracture type: closed Qualified Code(s): S72.402A - Unspecified fracture of lower end of left femur, initial encounter for closed fracture (2) Dislocation of patella, left, closed: QUALIFIERS: Encounter type: initial encounter Qualified Code(s): S83.005A - Unspecified dislocation of left patella, initial encounter (3) Odgxw-Yrykutnxx-Ltxub (WPW) syndrome: (4) H/O mechanical aortic valve replacement: (5) intermediate current use of anticoagulant: PLAN: 1. Fracture of distal end of left femur as well as dislocation of left patella -Patient to go for surgery with Dr. Simms later today. -Patient currently in leg immobilizer states that this is much improved his pain -Continue pain management regimen including acetaminophen, oxycodone, morphine. 2. History of mechanical aortic valve replacement with long-term current use of anticoagulant -Warfarin on hold due to impending surgery. -Patient received vitamin K yesterday, INR 2.3 today 3. Jocfd-Pvfaenyga-Fcpkn syndrome -Continue metoprolol DVT prophylaxis-warfarin on hold secondary to impending surgery This patient was seen by SAVAGE Sanchez under the supervision of Dr. Alfredo.
[2021-09-29] MEDS: oxyCODONE 5 MG Tablet 10 MG PO ×2 (09:54→17:31)
--- NOTE | 2021-09-29 10:39 | PCS.PANDOC ---
PANDEMIC DOCUMENTATION INITIATED: Date: 05/11/2021 Time: 190
--- NOTE | 2021-09-29 11:00 | CASEMGMT ---
SHAKIR RUSSO Face to Face with patient for initial transition planning/care coordination assessment. RN CM introduced self and role at [facility]. Patient lying in bed, alert and oriented, at bedside. Patient willing to participate in assessment and is able to answer all questions appropriately. Care providers, pharmacy, and demographics verified. Patient wishes to discharge home, with outpatient therapy at discharge. Patient states he has no further needs or concerns at this time. CM to follow for discharge planning needs that may arise. PCP: No PCP, his retired has information at home to get established with new PCP. Specialists: unique Simms; kelley Allen Preferred Pharmacy: [facility] at discharge Insurance: Iantha Prescription Benefit: yes Living Will/HPOA: yes, Kathryn Tierney LNOK: Living Arrangements: Patient lives with in a split level home. Patient states he was independent at home and able to ambulate stairs. Transportation: self/ DME/HHC: Patient denies DME. Will monitor for FWW at discharge. Patient states he prefers [facility] for outpatient therapy. Disposition Plan: Patient to discharge home with outpatient therapy, family support, and follow-up plans in place. Nancy TREVINO, RN, CM
--- NOTE | 2021-09-29 12:55 | CASEMGMT ---
Tertiary facilities in network with patient's insurance: [facility], [facility], [facility], [facility], [facility], , [facility], [facility].
[2021-09-29 16:45] VITALS: BP 119/76; PULSE 73; RESP 18; TEMP 37.1; O2SAT 97
[2021-09-29 20:48] VITALS: PULSE 80
[2021-09-29] MEDS: Magnesium Chloride 64 MG Delay Rel.Tablet 128 MG PO (20:48)
[2021-09-29 22:45] VITALS: BP 134/81; PULSE 82; RESP 18; TEMP 37.7; O2SAT 94
[2021-09-30] MEDS: Acetaminophen 325 MG Tablet 650 MG PO ×3 (00:16→11:14)
[2021-09-30] MEDS: oxyCODONE 5 MG Tablet 10 MG PO ×3 (00:16→11:14)
[2021-09-30 04:53] VITALS: BP 120/71; PULSE 76; RESP 16; TEMP 36.6; O2SAT 96
[2021-09-30 06:50] LABS: Absolute Neutrophil Count 8.3 X10^3/uL (2.0-7.7); Basophil# 0.03 X10^3/uL; Basophil% 0.3 % (0-1); Eosinophil# 0.41 X10^3/uL; Eosinophils% 3.6 % (0-5); Hematocrit 36.9 % (40-54); Hemoglobin 12.9 g/dL (13.0-16.5); Lymphocyte % 14.1 % (19-41); Mean Corpuscular Hgb 29.9 pg (27.0-32.0); Mean Corpuscular Volume 85.4 fL (80-94); Mean Platelet Vol. 10.6 fl (6.2-12.0); Monocyte# 1.03 X10^3/uL; Monocyte% 9.1 % (0-10); NRBC Flagged by Analyzer 0 % (0-5); Neutrophil # 8.27 X10^3/uL (2.7-7.7); Neutrophil % 72.5 % (47-70); Platelet Count 159 K/mm3 (150-450); RBC Distribution Width CV 12.5 % (11.6-14.6); RBC Distribution Width SD 38.5 fl (35.1-43.9); Red Blood Count 4.32 M/mm3 (4.6-6.2); White Blood Count 11.4 K/mm3 (4.4-11.0)
[2021-09-30 07:11] LABS: Anion Gap 7 (5-15); BUN 26 mg/dL (7-18); BUN/Creat Ratio 23.2 RATIO (10-20); Calcium,Total 8.9 mg/dL (8.5-10.1); Chloride 103 mmol/L (98-107); Creatinine, Serum 1.12 mg/dL (0.70-1.30); EST Glomerular Filtration Rate 75 mL/min (>60); Est Glom Filt Rate - Afr Amer 91 mL/min (>60); Glucose 118 mg/dL (74-106); Sodium Level 135 mmol/L (136-145)
[2021-09-30 08:48] VITALS: BP 119/70; PULSE 89; RESP 18; TEMP 36.9; O2SAT 92
[2021-09-30 08:56] VITALS: BP 119/70; PULSE 89
[2021-09-30] MEDS: Magnesium Chloride 64 MG Delay Rel.Tablet 128 MG PO (08:56)
[2021-09-30] MEDS: Metoprolol Tartrate 100 MG Tablet PO (08:56)
--- NOTE | 2021-09-30 09:38 | PCM.DC ---
Discharge Instructions Diet Discharge Diet: No restrictions Activity Weight Bearing Status: No weight bearing Keep extremity elevated above heart level: Left Leg Follow Up Care Test Results: Test results from this visit will be discussed in further detail at your follow-up appointment, if applicable. Discharge Plan Admission Admit Date/Time: 09/28/21 14:43 Primary Reason for Your Visit: Left femur fracture and patella dislocation Attending Provider: Radhames Alfredo Primary Care Provider: Care Physician,No Primary Consulting Providers: Dallas Simms Discharge Orders/Prescriptions Prescriptions: No Action magnesium citrate 125 mg capsule 125 mg PO BID RF: 0 aspirin 81 MG tablet,chewable 81 mg PO DAILY@0800 RF: 0 warfarin 5 mg tablet 3.75 mg PO DAILY RF: 0 metoprolol tartrate 100 mg tablet 100 mg PO BID RF: 0 Referrals / Follow Up: Care Physician,No Primary [Primary Care Provider] - Disposition Disposition (needs filled in before D/C Order can be placed): [facility]
--- NOTE | 2021-09-30 09:43 | DS.PCM_ITS ---
Documented by User: SAVAGE Sanchez 09/30/21 09:50 Providers Date of Admission: 09/28/21 Primary Care Physician: Shabnam Primary Care Phys Consultations 09/28/21 15:29 Consult: Orthopedics Routine Consulting Provider: Dallas Simms Reason for Consult: femur fracture EMERGENT Consult: No MD Notified: Yes Date Notified: 09/28/21 Time Notified: 15:15 Method of Notification: Verbal Reason For Visit: LEFT DISTAL FEMUR FRACTURE, PATELLAR DISLOCATION Diagnosis Discharge Diagnosis (1) Fracture of distal end of left femur: Status: Acute Code(s): S72.402A - Unspecified fracture of lower end of left femur, initial encounter for closed fracture Qualifiers: Encounter type: initial encounter Fracture morphology: unspecified fracture morphology Fracture type: closed Qualified Code(s): S72.402A - Unspecified fracture of lower end of left femur, initial encounter for closed fracture Medications at Discharge Home Medications aspirin 81 mg PO DAILY@0800 04/22/16 magnesium citrate 125 mg capsule 125 mg PO BID cap 11/08/19 metoprolol tartrate 100 mg PO BID 09/28/21 warfarin 3.75 mg PO DAILY 09/28/21 Hospital Course Operations None Procedures None Summary of Care Provided Minutes Spent on Discharge: 35 Hospital Course: Patient is a 45-year-old male who presented at following a fall with complaints of left leg pain. Patient was noted to have a left distal and femur fracture as well as dislocation of his left patella. Patient was evaluated by Dr. Simms of orthopedics who felt that due to the nature of the patient's fracture he would be better served going to a tertiary care hospital for proper treatment. Patient received a bed at [facility] and will be evaluated for surgery upon arrival. Patient's warfarin has been on hold throughout his admission. Patient on anticoagulation due to history of aortic valve replacement as well as Ebrae-Zuxpxjowz-Mdimr syndrome. Physical Exam Const alert, oriented x3 and no apparent distress General Appearance: cooperative HEENT normocephalic and moist oral mucous membranes Eyes conjunctivae normal and no scleral icterus Neck supple General: trachea midline Resp normal respiratory effort and clear to auscultation bilaterally Cardio regular rate, regular rhythm, S1 normal heart sound and S2 normal heart sound GI normal to inspection, nondistended, normoactive bowel sounds, soft to palpation and non-tender; Negative for hepatosplenomegaly Extremity no clubbing, cyanosis or edema Extremity Narrative: Left lower extremity in a an immobilizer Skin no rashes or lesions noted and no wounds Neuro oriented x3, no focal motor deficits and no sensory deficits noted Motor Exam: general weakness Psych affect normal Appearance: appropriate Weight / BMI Weight Weight: 266 lb Body Mass Index (BMI) 33.2 ABG / Lab / Microbiology Data Result Diagrams: 09/30/21 06:31 09/30/21 06:31 Laboratory: Laboratory Results - last 24 hr 09/30/21 06:31: WBC 11.4 H, RBC 4.32 L, Hgb 12.9 L, Hct 36.9 L, MCV 85.4, MCH 29.9, MCHC 35.0, RDW Std Deviation 38.5, RDW Coeff of Pamela 12.5, Plt Count 159, MPV 10.6, Immature Gran % (Auto) 0.400, Neut % (Auto) 72.5 H, Lymph % (Auto) 14.1 L, [place] % (Auto) 9.1, Eos % (Auto) 3.6, Baso % (Auto) 0.3, Absolute Neuts (auto) 8.3 H, Absolute Lymphs (auto) 1.60, Nucleated RBC % 0 09/30/21 06:31: Sodium 135 L, Potassium 4.0, Chloride 103, Carbon Dioxide 25.0, Anion Gap 7, BUN 26 H, Creatinine 1.12, Estim Creat Clear Calc 100.60, Est GFR (MDRD) Af Amer 91, Est GFR (MDRD) Non-Af 75, BUN/Creatinine Ratio 23.2 H, Glucose 118 H, Calcium 8.9 Microbiology: Microbiology 09/28/21 15:58 Nasal Secretion SARS-CoV-2 Antigen (Rapid) - Final D/C Instructions Discharge Diet: No restrictions Weight Bearing Status: No weight bearing Keep extremity elevated above heart level: Left Leg Meaningful Use Info Meaningful Use Diagnoses (Choose all that apply): None applicable Discharge Plan Admission Admit Date/Time: 09/28/21 14:43 Primary Reason for Your Visit: Left femur fracture and patella dislocation Attending Provider: Radhames Alfredo Primary Care Provider: Care Physician,No Primary Consulting Providers: Dallas Simms Discharge Orders/Prescriptions Prescriptions: No Action magnesium citrate 125 mg capsule 125 mg PO BID RF: 0 aspirin 81 MG tablet,chewable 81 mg PO DAILY@0800 RF: 0 warfarin 5 mg tablet 3.75 mg PO DAILY RF: 0 metoprolol tartrate 100 mg tablet 100 mg PO BID RF: 0 Referrals / Follow Up: Care Physician,No Primary [Primary Care Provider] - Disposition Disposition (needs filled in before D/C Order can be placed): [facility] [place] Documented by User: Dr. Radhames Alfredo MD 09/30/21 12:02 Providers Date of Admission: 09/28/21 Reason For Visit: LEFT DISTAL FEMUR FRACTURE, PATELLAR DISLOCATION Medications at Discharge Home Medications aspirin 81 mg PO DAILY@0800 04/22/16 magnesium citrate 125 mg capsule 125 mg PO BID cap 11/08/19 metoprolol tartrate 100 mg PO BID 09/28/21 warfarin 3.75 mg PO DAILY 09/28/21 ABG / Lab / Microbiology Data Result Diagrams: 09/30/21 06:31 09/30/21 06:31 Discharge Plan Admission Admit Date/Time: 09/28/21 14:43 Primary Reason for Your Visit: Left femur fracture and patella dislocation Attending Provider: Radhames Alfredo Primary Care Provider: Care Physician,No Primary Consulting Providers: Dallas Simms Discharge Orders/Prescriptions Prescriptions: No Action magnesium citrate 125 mg capsule 125 mg PO BID RF: 0 aspirin 81 MG tablet,chewable 81 mg PO DAILY@0800 RF: 0 warfarin 5 mg tablet 3.75 mg PO DAILY RF: 0 metoprolol tartrate 100 mg tablet 100 mg PO BID RF: 0 Referrals / Follow Up: Care Physician,No Primary [Primary Care Provider] - Disposition Disposition (needs filled in before D/C Order can be placed): [facility] pital Charges/Coding Addendum Addendum: Addendum: Dr. Alfredo I personally examined the patient and reviewed the chart. I agree with the above. 45-year-old male who fell on the ice while stepping over a curb with a twisting motion. He is had a significant fracture to the distal end of his left femur as well as dislocation of his left patella. Initially was accepted by orthopedic surgery however they felt that the intervention would be too complicated and recommended transfer to a tertiary care center with trauma surgery. We did discuss this with [facility] and they have accepted the patient and transfer however unsure as to when this will occur. His INR is elevated at 2.3 but he did receive 5 of vitamin K and will continue to hold, this is for mechanical aortic valve replacement he states that according to his doctor the INR can go as low as 1.5 for this particular valve. 09/30/2021: Doing well today, pain is controlled. INR yesterday was 2.3 unfortunately was forgotten to be checked this morning he did receive a bed and can be discharged today to tertiary care facility for definitive intervention of his femur fracture Visit Charges Inpatient E&M: 41992 Disch Hosp
--- NOTE | 2021-09-30 10:03 | NURSING ---
report called to SHAKIR Sierra at [facility] for patient transfer.
[2021-09-30 11:17] VITALS: BP 126/78; PULSE 78; RESP 18; TEMP 36.6; O2SAT 97
== END 2021-09-30 11:54 | disposition short-term general hospital (02) | DRG 534 ==
LOC: ED 14:40 → MS2 15:39
PROVIDERS: Nurse Practitioner Family; Emergency Provider Emergency Medicine; Visit Provider Family Medicine
DX: S72.402A Unspecified fracture of lower end of left femur, initial encounter for closed fracture (principal); S83.015A Lateral dislocation of left patella, initial encounter; W00.0XXA Fall on same level due to ice and snow, initial encounter; R79.1 Abnormal coagulation profile; Z95.2 Presence of prosthetic heart valve; I45.6 Pre-excitation syndrome; Z79.01 Long term (current) use of anticoagulants; Z79.82 Long term (current) use of aspirin
CPT/HCPCS: 36415; 73560; 73564; 73700; 80048; 80053; 82306; 85025; 85610; 86850; 86900; 86901; 87426; 93005; 99251; 99285; J7030; A4216; G0463

== ENCOUNTER 2021-12-28 11:28 | Outpatient (RCR) | payer BC, SELFPAY ==
[2021-08-26 02:03] VITALS: BMI 33.3
[2021-12-28 13:01] LABS: International Normalized Ratio 2.3; Prothrombin Time (Protime)PT. 24.7 SECONDS (11.7-14.9)
== END 2021-12-28 18:00 | disposition home or self-care (01) ==
LOC: LAB 11:28
PROVIDERS: Referring Provider Internal Medicine Cardiovascular Disease; Visit Provider Internal Medicine Cardiovascular Disease
DX: Z95.2 Presence of prosthetic heart valve (principal); Z79.01 Long term (current) use of anticoagulants
CPT/HCPCS: 36415; 85610

== ENCOUNTER 2022-02-17 08:00 | Outpatient (RCR) | payer BC, SELFPAY ==
--- NOTE | 2021-10-22 16:45 | HP.PTEVAL_ITS ---
Patient's Visit Information SERGE MOON is a 45 year old M referred to Physical Therapy by BRANDIN JORDAN with a diagnosis of Distal Femur Fracture. Date of Evaluation: 10/22/21 Physical Therapist: Deepika Piña DPT - Visit Plan Frequency: 1x/Week Duration: 4 Weeks Plan: 1x a week for HEP progression- 0-90 degrees- NWB - Subjective Sep 28 fell on the ice- Left-broken patella and broken femur- tore patellar ligaments. Went to [facility]- they did x-rays and planned to do surgery then decided- wanted to send to trauma- went to [facility] in [place]- Surgery 10/01/2021- was able to go home 10/05/2021. Couple days longer due to blood thinners- mechanical heart valve put in 2016. Lives with in split level- but he is all on one floor- currently- but would like to get back to be able to move around. Is now getting down to his workshop. He is NWB for another 4-6 weeks. He is being good about his precautions. Fully I prior to fall. 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 He reports pain comes and goes. He was in an immobilizer until 2 days ago. He is able to bend his knee and that makes it a little sore. Worst: 4/10 Agg: moving around. Eases: pain medication, elevation, ice. Best: 0/10. Sleep: recliner- no night pains. Describes the pain as dull and achy- pain is located in the anterior knee- does have some pain in the muscle soreness. No cramping- no N/T. Does have a very long incision- took rivka out. Wearing the brace at all times at this point. PMHx: ablasion 2017, valve in 2016. Meds: warfarin, baby asprin, metroprolol, magnesium - Objective Posture: fair throughout. Gait: NWB on left LE- FWW- good compliance. Observation: incision healing well no s/s of infection. ROM: 0-50 degrees. Palpation: along medial and lateral joint lines. Strength: Core: fair Hip: 4+/5 SLR: moderate lag, Quad set: visible Ankle: 5/5 Flex: HS: severe Gastroc: moderate, Solues: moderate, Quad: severe. Girth: 6 below:40.5 cm Patella: 50cm 6 above: 55cm - Balance/Special Test Scores Lower Extremity Functional Score: 0 - Goals Goal 1:: Patient will be I with HEP and progression Goal Time Frame: 4-6 Weeks Goal 2:: Patient will ambulate >300 feet with a normalized gait pattern Goal Time Frame: 4-6 Weeks Goal 3:: Patient will asc/desc 8 recip with no HR and good control Goal Time Frame: 4-6 Weeks Goal 4:: Patient will demo 0-120 degrees of left knee flexion Goal Time Frame: 4-6 Weeks - Rehabilitation Potential Physical Therapy Diagnosis: Patient presents with hypomobility- he has decreased ROM, LE and core strength/stabilization, flex and muscular endurance s/p fracture leading to poor posture and increased pain with ADL's. Rehabilitation Potential: Excellent - Anticipated Interventions Patient/Client Instruction: Educate patient on: Benefits of Fitness Program Therapeutic Exercise to Include: Strength training, Power training, Endurance training, Balance training, Agility training, Body mechanics, Postural training, Flexibilty training, Gait and locomotor training, Neuromotor development, Passive ROM, Active ROM, Dynamic Lumbar Stabilization, Scapular Strength/Stabilization For the Purpose of:: To improve muscle performance and motor function TENS: Yes Cryotherapy (ice pack, ice massage): Yes Thermo therapy (hot pack): Yes Ultrasound (thermal/non thermal): No Thank you for the opportunity to evaluate your patient. For Medicare and Medicare HMO plans, please review the plan of care and approve it. It will need to be FAXED BACK to us at [phone] for Medicare purposes. For Medicare only, by signing this I certify the plan of care. Please let me know if there are questions or concerns regarding this plan of care. Physician Signature: Date:
--- NOTE | 2021-11-16 10:25 | HP.PTREVAL_ITS ---
BRANDIN JORDAN, It has been my pleasure to treat SERGE MOON over the last 5 visits for Distal Femur Fracture. Please see the progress note below for an update on the physical therapy plan of care! Subjective: Patient reports that he is working hard but is frustrated due to lack of motion. He has pain with flexion exercises- but the pain goes away qu ickly. He has no pain with rest. Much more mobile with the walker- keeps the brace on when he is up moving around but off when he is sitting. Sleep is not disturbed- back in bed. Goes back to MD tomorrow. Objective/Function: Posture: fair throughout. Gait: NWB on left LE- FWW- good compliance. Observation: incision healing well no s/s of infection- completely healed incision. ROM: 5-73 degrees without overpressure 0-75 degrees with overpressure. Palpation: along medial and lateral joint lines. Strength: Core: fair Hip: 4+/5 SLR: mild lag, Quad set: visible Ankle: 5/5 Flex: HS: severe Gastroc: moderate, Solues: moderate, Quad: severe. Girth: 6 below: 41 cm Patella: 48 cm 6 above: 56 cm Plan Plan: 1x a week for HEP progression- 0-90 degrees- NWB Balance/Gait/Functional tests - Balance/Special Test Scores Lower Extremity Functional Score: 0 Goals Goal 1:: Patient will be I with HEP and progression Goal Time Frame: 4-6 Weeks Goal 2:: Patient will ambulate >300 feet with a normalized gait pattern Goal Time Frame: 4-6 Weeks Goal 3:: Patient will asc/desc 8 recip with no HR and good control Goal Time Frame: 4-6 Weeks Goal 4:: Patient will demo 0-120 degrees of left knee flexion Goal Time Frame: 4-6 Weeks Anticipated Interventions Patient/Client Instruction: Educate patient on: Benefits of Fitness Program Therapeutic Exercise to Include: Strength training, Power training, Endurance training, Balance training, Agility training, Body mechanics, Postural training, Flexibilty training, Gait and locomotor training, Neuromotor development, Passive ROM, Active ROM, Dynamic Lumbar Stabilization, Scapular Strength/Stabilization For the Purpose of:: To improve muscle performance and motor function TENS: Yes Cryotherapy (ice pack, ice massage): Yes Thermo therapy (hot pack): Yes Ultrasound (thermal/non thermal): No Please do not hesitate to contact me at [phone] by phone or if you have questions or concerns regarding this new plan of care! Sincerely, MICHELLE AllenT
--- NOTE | 2021-12-28 08:37 | HP.PTREVAL ---
BRANDIN JORDAN, It has been my pleasure to treat SERGE MOON over the last 21 visits for L Distal Femur Fracture. Please see the progress note below for an update on the physical therapy plan of care! Subjective: Patient reports that he is making progress. He feels that he has started to turn the corner. He is walking with a cane in the community and is walking at home without it. The pain level is better- he is normally a 1/10 when he does his exercises he is now a 2-3/10- the time to recover after the exercises has diminished. The soreness is much more into the muscle. Sleep is better- does wake him up but its less- is taking Tylenol PM to sleep. Does still have oxy and takes about 1x a day. He back to work half days. He is doing the leg press and prone bends at night (strap and pushes). He is making progress. Objective/Function: Posture: fair throughout. Gait: straight cane- decreased stance on the left LE with poor heel/toe pattern due to lack of extension. Stairs: asc/desc 8 non recip with 2 HR. HR/TR: able with UE A and slight weight shift. SLS: weight shift but unable to SLS and reports discomfort. Observation: incision healing well- no s/s of infection or open areas of the scar. Palpation: mild adhesion of the scar, improved patellar movement with glides. Girth: Patella: 47 cm 6 above: 54.5 cm. ROM: Knee:10-90 degrees without over pressure, Hip/Ankle: WFL. Strength: Ankle: 5/5, Knee: Flexion: 4+/5, Extn: 2+/5 unable to obtain full ROM in sitting against gravity- if A from PT can hold into full extension with compensation from hip flexors. SLR: moderate lag. Quad set visible but decreased Plan Plan: Continue with current POC- 2x a week for 8 weeks- progression of ROM, strength and functional mobility Balance/Gait/Functional tests - Balance/Special Test Scores Lower Extremity Functional Score: 42 Goals Goal 1:: Patient will be I with HEP and progression Goal Time Frame: 4-6 Weeks Goal Progress: Progressing Goal 2:: Patient will ambulate >300 feet with a normalized gait pattern Goal Time Frame: 4-6 Weeks Goal Progress: Progressing Goal 3:: Patient will asc/desc 8 recip with no HR and good control Goal Time Frame: 4-6 Weeks Goal Progress: Progressing Goal 4:: Patient will demo 0-120 degrees of left knee flexion Goal Time Frame: 4-6 Weeks Goal Progress: Progressing Anticipated Interventions Patient/Client Instruction: Educate patient on: Benefits of Fitness Program Therapeutic Exercise to Include: Strength training, Power training, Endurance training, Balance training, Agility training, Body mechanics, Postural training, Flexibilty training, Gait and locomotor training, Neuromotor development, Passive ROM, Active ROM, Dynamic Lumbar Stabilization, Scapular Strength/Stabilization For the Purpose of:: To improve muscle performance and motor function TENS: Yes Cryotherapy (ice pack, ice massage): Yes Thermo therapy (hot pack): Yes Ultrasound (thermal/non thermal): No Please do not hesitate to contact me at [phone] by phone or if you have questions or concerns regarding this new plan of care! Sincerely, Deepika Piña DPT
--- NOTE | 2022-02-17 08:27 | HP.PTDCSUM_ITS ---
It has been my pleasure to treat SERGE MOON referred by BRANDIN JORDAN, with the diagnosis of L Distal Femur Fracture for a total of 33 visit(s). Discharge Date: Please see the following information for a summary of their discharge status. Subjective: Patient reports that he is doing pretty well. He feels some soreness in his quad but feels like he is making gains. He is still using the dynasplint. He feels that functionally he is making gains- he is able to put his leg in the car without issues. He is walking around work. He is not able to squat down. L knee pain Pain Intensity (Out of 10): 0 % Improvement: 85 Objective/Function: Posture: fair throughout. Gait: no AD- slightly antalgic- with decreased heel/toe pattern Stairs: asc/desc 8 recip with 1 HR for descent due to decreased control with eccentric. HR/TR: able with UE A. SLS: 15 sec O bservation: incision healing well- no s/s of infection or open areas of the scar- no adhesions. ROM: Knee: 0=105 degrees without over pressure, Hip/Ankle: WFL. Strength: Ankle: 5/5, Knee: Flexion: 4+/5, Extn: 4/5. Hip: 4+/5. Flex: HS: moderate, Gastroc: moderate Goal 1:: Patient will be I with HEP and progression Goal Progress: Progressing Goal 2:: Patient will ambulate >300 feet with a normalized gait pattern Goal Progress: Progressing Goal 3:: Patient will asc/desc 8 recip with no HR and good control Goal Progress: Progressing Goal 4:: Patient will demo 0-120 degrees of left knee flexion Goal Progress: Progressing Plan: Discharge to I home exercise program- encouraged him to call if questions or concerns. If there are questions or concerns regarding this patient's physical therapy, please feel free to call me at [phone]. Thank you for the referral of this patient. Sincerely, Deepika Piña, MICHELLET Balance/Gait/Functional tests - Balance/Special Test Scores Lower Extremity Functional Score: 56
== END 2022-02-17 19:00 | disposition home or self-care (01) ==
LOC: PT 08:00
DX: S72.102D Unspecified trochanteric fracture of left femur, subsequent encounter for closed fracture with routine healing (principal)
CPT/HCPCS: 97110; 97140; 97162; 97164

== ENCOUNTER 2022-03-30 12:33 | Outpatient (RCR) | payer BC, SELFPAY ==
[2022-01-24 02:41] VITALS: BMI 33.3
[2022-03-30 13:10] LABS: Prothrombin Time (Protime)PT. 22.2 SECONDS (11.7-14.9)
== END 2022-04-25 02:02 | disposition home or self-care (01) ==
LOC: LAB 12:33
PROVIDERS: Referring Provider Internal Medicine Cardiovascular Disease; Visit Provider Internal Medicine Cardiovascular Disease
DX: Z95.2 Presence of prosthetic heart valve (principal); Z79.01 Long term (current) use of anticoagulants
CPT/HCPCS: 36415; 85610

== ENCOUNTER 2022-06-11 12:37 | Outpatient (RCR) | payer BC, SELFPAY ==
[2022-04-25 02:03] VITALS: BMI 33.3
[2022-06-11 13:39] LABS: International Normalized Ratio 2.1; Prothrombin Time (Protime)PT. 23.5 SECONDS (11.7-14.9)
== END 2022-06-11 18:00 | disposition home or self-care (01) ==
LOC: LAB 12:37
PROVIDERS: Referring Provider Internal Medicine Cardiovascular Disease; Visit Provider Internal Medicine Cardiovascular Disease
DX: Z79.01 Long term (current) use of anticoagulants (principal); Z95.2 Presence of prosthetic heart valve
CPT/HCPCS: 36415; 85610

== ENCOUNTER 2022-08-09 12:17 | Outpatient (RCR) | payer BC, SELFPAY ==
[2022-06-25 20:25] VITALS: BMI 33.3
[2022-08-09 12:48] LABS: International Normalized Ratio 2.4; Prothrombin Time (Protime)PT. 25.9 SECONDS (11.7-14.9)
== END 2022-08-25 18:00 | disposition home or self-care (01) ==
LOC: LAB 12:17
PROVIDERS: Referring Provider Internal Medicine Cardiovascular Disease; Visit Provider Internal Medicine Cardiovascular Disease
DX: Z79.01 Long term (current) use of anticoagulants (principal); Z95.2 Presence of prosthetic heart valve
CPT/HCPCS: 36415; 85610

== ENCOUNTER 2022-10-05 12:33 | Outpatient (RCR) | payer BC, SELFPAY ==
[2022-08-25 22:42] VITALS: BMI 33.3
[2022-10-05 14:33] LABS: International Normalized Ratio 2.3; Prothrombin Time (Protime)PT. 25.2 SECONDS (11.7-14.9)
== END 2022-10-05 14:00 | disposition home or self-care (01) ==
LOC: LAB 12:33
PROVIDERS: Referring Provider Internal Medicine Cardiovascular Disease; Visit Provider Internal Medicine Cardiovascular Disease
DX: Z79.01 Long term (current) use of anticoagulants (principal); Z95.2 Presence of prosthetic heart valve
CPT/HCPCS: 36415; 85610

== ENCOUNTER 2022-12-13 12:10 | Outpatient (RCR) | payer BC, SELFPAY ==
[2022-10-27 07:52] VITALS: BMI 33.3
[2022-12-13 12:52] LABS: International Normalized Ratio 2.2; Prothrombin Time (Protime)PT. 23.7 SECONDS (11.7-14.9)
== END 2022-12-24 21:29 | disposition home or self-care (01) ==
LOC: LAB 12:10
PROVIDERS: Referring Provider Internal Medicine Cardiovascular Disease; Visit Provider Internal Medicine Cardiovascular Disease
DX: Z79.01 Long term (current) use of anticoagulants (principal); Z95.2 Presence of prosthetic heart valve
CPT/HCPCS: 36415; 85610

== ENCOUNTER 2023-02-16 12:30 | Outpatient (RCR) | payer BC, SELFPAY ==
[2022-12-24 21:29] VITALS: BMI 33.3
[2023-02-16 14:14] LABS: International Normalized Ratio 2.4; Prothrombin Time (Protime)PT. 26.3 SECONDS (11.7-14.9)
== END 2023-02-16 13:30 | disposition home or self-care (01) ==
LOC: LAB 12:30
PROVIDERS: Referring Provider Internal Medicine Cardiovascular Disease; Visit Provider Internal Medicine Cardiovascular Disease
DX: Z79.01 Long term (current) use of anticoagulants (principal); Z95.2 Presence of prosthetic heart valve; Q23.1 Congenital insufficiency of aortic valve
CPT/HCPCS: 36415; 85610

== ENCOUNTER 2023-04-11 11:48 | Outpatient (RCR) | payer BC, SELFPAY ==
[2023-02-24 08:08] VITALS: BMI 33.3
[2023-04-11 12:25] LABS: International Normalized Ratio 2.3; Prothrombin Time (Protime)PT. 25.8 SECONDS (11.7-14.9)
== END 2023-04-25 18:00 | disposition home or self-care (01) ==
LOC: LAB 11:48
PROVIDERS: Referring Provider Internal Medicine Cardiovascular Disease; Visit Provider Internal Medicine Cardiovascular Disease
DX: Z79.01 Long term (current) use of anticoagulants (principal); Z95.2 Presence of prosthetic heart valve
CPT/HCPCS: 36415; 85610

== ENCOUNTER 2023-06-08 11:46 | Outpatient (RCR) | payer BC, SELFPAY ==
[2023-04-26 00:09] VITALS: BMI 33.3
[2023-06-08 12:36] LABS: International Normalized Ratio 2.3; Prothrombin Time (Protime)PT. 25.4 SECONDS (11.7-14.9)
== END 2023-06-08 18:00 | disposition home or self-care (01) ==
LOC: LAB 11:46
PROVIDERS: Referring Provider Internal Medicine Cardiovascular Disease; Visit Provider Internal Medicine Cardiovascular Disease
DX: Z79.01 Long term (current) use of anticoagulants (principal); Z95.2 Presence of prosthetic heart valve; Q23.1 Congenital insufficiency of aortic valve
CPT/HCPCS: 36415; 85610

== ENCOUNTER 2023-08-01 12:16 | Outpatient (RCR) | payer BC, SELFPAY ==
[2023-06-26 01:42] VITALS: BMI 33.3
[2023-08-01 13:00] LABS: International Normalized Ratio 2.3; Prothrombin Time (Protime)PT. 25.8 SECONDS (11.7-14.9)
== END 2023-08-25 18:00 | disposition home or self-care (01) ==
LOC: LAB 12:16
PROVIDERS: Referring Provider Internal Medicine Cardiovascular Disease; Visit Provider Internal Medicine Cardiovascular Disease
DX: Z79.01 Long term (current) use of anticoagulants (principal); Z95.2 Presence of prosthetic heart valve; Q23.1 Congenital insufficiency of aortic valve
CPT/HCPCS: 36415; 85610

== ENCOUNTER 2023-10-03 12:59 | Outpatient (RCR) | payer BC, SELFPAY ==
[2023-08-26 03:03] VITALS: BMI 33.3
[2023-10-03 13:21] LABS: International Normalized Ratio 2.3; Prothrombin Time (Protime)PT. 25.6 SECONDS (11.7-14.9)
== END 2023-10-03 18:00 | disposition home or self-care (01) ==
LOC: LAB 12:59
PROVIDERS: Referring Provider Internal Medicine Cardiovascular Disease; Visit Provider Internal Medicine Cardiovascular Disease
DX: Z79.01 Long term (current) use of anticoagulants (principal); Z95.2 Presence of prosthetic heart valve; Q23.1 Congenital insufficiency of aortic valve
CPT/HCPCS: 36415; 85610

== ENCOUNTER 2023-11-28 12:41 | Outpatient (RCR) | payer BC, SELFPAY ==
[2023-10-26 21:39] VITALS: BMI 33.3
[2023-11-28 13:23] LABS: International Normalized Ratio 2.5; Prothrombin Time (Protime)PT. 26.6 SECONDS (11.7-14.9)
== END 2023-12-24 18:00 | disposition home or self-care (01) ==
LOC: LAB 12:41
PROVIDERS: Referring Provider Internal Medicine Cardiovascular Disease; Visit Provider Internal Medicine Cardiovascular Disease
DX: Z79.01 Long term (current) use of anticoagulants (principal); Z95.2 Presence of prosthetic heart valve; Q23.1 Congenital insufficiency of aortic valve
CPT/HCPCS: 36415; 85610

== ENCOUNTER → 2023-12-30 | Outpatient (CLI) | payer BC, SELFPAY ==
--- NOTE | 2023-12-30 07:54 | ECHOCS_ITS ---
Reason For Study: VALVE REPLACEMENT Procedure This was a 2D Doppler, Color Flow transthoracic echocardiogram. The study was technically difficult. Contrast injection was performed. Exam performed in department. Left Ventricle Normal LV size. Left ventricular systolic function is normal. The estimated ejection fraction is 60 %. No regional wall motion abnormalities noted. Right Ventricle Normal RV size. Normal systolic function. Atria Normal left atrium. Normal right atrium. Mitral Valve Normal mitral valve. Tricuspid Valve Normal tricuspid valve. Aortic Valve Peak aortic valve gradient 14 mmHg. Mean aortic valve gradient 8 mmHg. Stable appearing mechanical aortic valve apparatus. Pulmonic Valve Normal pulmonic valve. Great Vessels Normal aortic root. The pulmonary artery is normal size. Normal inferior vena cava. Pericardium/Pleural No pericardial effusion. Medication 22 gauge I.V. with prn adaptor inserted into right arm. Diluted definity 2ml given slow IV push to enhance endocardial definition. MMode/2D Measurements & Calculations LVIDd: 5.2 cm IVSd: 0.87 cm LVOT diam: 2.0 cm LVIDs: 3.4 cm LVPWd: 1.0 cm FS: 34.8 % LVOT area: 3.2 cm2 Ao root diam: 3.7 cm LAV(MOD-bp): 67.8 ml LVAd ap4: 43.7 cm2 LAV(MOD-bp) Indexed: 27.6 ml/m2 LVLd ap4: 9.5 cm LAV(MOD-sp2): 55.6 ml EDV(MOD-sp4): 173.1 ml LAV(MOD-sp4): 69.4 ml EDV(sp4-el): 170.5 ml LVAs ap4: 26.0 cm2 LVLs ap4: 8.3 cm ESV(MOD-sp4): 68.1 ml ESV(sp4-el): 69.4 ml EF(MOD-sp4): 60.6 % EF(sp4-el): 59.3 % SV(MOD-sp4): 105.0 ml SV(sp4-el): 101.0 ml LA A4 area: 21.9 cm2 RA A4 area: 20.4 cm2 TAPSE: 2.0 cm Time Measurements MV dec time: 0.21 sec Doppler Measurements & Calculations MV E max alejo: 102.8 cm/sec Lat Peak E' Alejo: 13.4 cm/sec Med Peak E' Alejo: 9.0 cm/sec MV A max alejo: 71.5 cm/sec E/E' lat: 7.7 E/E' med: 11.4 MV E/A: 1.4 MV V2 max: 124.5 cm/sec MV dec slope: 486.8 cm/sec2 Ao V2 max: 190.7 cm/sec MV max P.2 mmHg Ao max P.5 mmHg MV V2 mean: 57.7 cm/sec Ao V2 mean: 125.8 cm/sec MV mean P.8 mmHg Ao mean P.5 mmHg MV V2 VTI: 39.9 cm Ao V2 VTI: 43.1 cm MVA(VTI): 2.8 cm2 AV (velocity ratio): 0.82 JAMES(I,D): 2.6 cm2 JAMES(V,D): 2.6 cm2 LV V1 max: 156.3 cm/sec SV(LVOT): 111.9 ml PA V2 max: 105.7 cm/sec LV V1 max P.8 mmHg PA V2 mean: 72.0 cm/sec LV V1 mean P.2 mmHg LV V1 mean: 106.6 cm/sec LV V1 VTI: 35.4 cm ECHO/Echo Complete W/ Contrast Interpretation Summary Normal LV size. Left ventricular systolic function is normal. The estimated ejection fraction is 60 %. Stable appearing mechanical aortic valve apparatus. Mean aortic valve gradient 8 mmHg. Compared to the previous echocardiogram the above findings are essentially unch anged. Contrast injection was performed. Ordering Physician: Brayden Allen Referring Physician: Brayden Allen Performed By: Sabrina Madden RCS
== END | disposition home or self-care (01) ==
PROVIDERS: Referring Provider Internal Medicine Cardiovascular Disease; Visit Provider Internal Medicine Cardiovascular Disease
DX: Z95.2 Presence of prosthetic heart valve (principal)
CPT/HCPCS: 93306; Q9957; A4216; C8929

== ENCOUNTER 2024-01-30 12:12 | Outpatient (RCR) | payer BC, SELFPAY ==
[2023-12-24 21:31] VITALS: BMI 33.3
[2024-01-30 13:43] LABS: International Normalized Ratio 2.7; Prothrombin Time (Protime)PT. 28.3 SECONDS (11.7-14.9)
== END 2024-01-30 18:00 | disposition home or self-care (01) ==
LOC: LAB 12:12
PROVIDERS: Referring Provider Internal Medicine Cardiovascular Disease; Visit Provider Internal Medicine Cardiovascular Disease
DX: Z79.01 Long term (current) use of anticoagulants (principal); Z95.2 Presence of prosthetic heart valve; Q23.1 Congenital insufficiency of aortic valve
CPT/HCPCS: 36415; 85610

== ENCOUNTER → 2024-03-07 | Outpatient (CLI) | payer BC, SELFPAY ==
--- NOTE | 2024-03-07 | IMM_PTH ---
PATIENT: SERGE MOON LOC: [facility] U#:[id number] AGE/SX: 48/M ROOM: RE03/07/[address]: Olu Guzmán MD : 1975 BED: DIS: 03/07/2024 SPEC #: [id number] RECD: 03/09/24 10:51 STATUS: NICOLA RESelena #: [id number] BHAVESH: 03/07/24 00:[address]: Olu Guzmán DEPT: IMMUNOHISTOCHEMISTRY RECD BY: Ernie Real Tissues: Skin of leg, NOS Procedures: SMA (add) CD31 (add) CD34 (add) CK8 (add) DESMIN (add) KI-67 (add) P53 (add) Vimentin (add) FACTOR VIII (add) Pankeratin (initial) MELAN-A (add) S-100 (add) PHYSICIAN & INSTITUTION [place] [id number] SPECIMEN INFORMATION: Tissue Source: Abscess right sousa Clinical Info: Abscess right sousa Specimen Number: [id number] CPT code: 80965,55858s27 METHODOLOGY: Deparaffinized sections of prefer/formalin-fixed tissue or PAP/DQ stained slides are incubated with monoclonal/polyclonal antibodies/oligonucleotide probes. Localization is made via biotin free immunoperoxidase method. Appropriate controls are performed and reacted as expected. Results on target cell population are indicated in the following table: RESULTS: ANTIBODY / CLONE RESULT AE1-3 (AE1/AE3/PCK26) negative CK8 (43knkpH18) negative Vimentin (V9) positive CD31 (BRETT/70A) negative Factor VIII (R Ag) negative CD34 (QBEnd-10) negative Actin (1A4) negative Desmin (CE-R-11) negative Melan A (A103) negative S-100 (4C4.9) negative P53 (DO-7) negative, null pattern Ki-67 (30-9) positive, 20% These tests were developed and their performance characteristics determined by [facility]. They may not have been cleared or approved by the U.S. Food and Drug Administration. The FDA has determined that such clearance or approval is not necessary. The above immunohistochemical/dualISH markers are ordered and reviewed by the Pathologist. INTERPRETATION: Skin lesion of right sousa, biopsy: Dermatofibroma. AM/mr 03/12/2024
--- NOTE | 2024-03-07 12:00 | LES_PTH ---
PATIENT: SERGE MOON LOC: [facility] U#:[id number] AGE/SX: 48/M ROOM: RE03/07/[address]: Olu Guzmán MD : 1975 BED: DIS: 03/07/2024 SPEC #: [id number] RECD: 03/08/24 07:02 STATUS: NICOLA SONJA #: [id number] BHAVESH: 03/07/24 12:[address]: Olu Guzmán DEPT: SURGICAL PATHOLOGY RECD BY: Desiree Berumen Tissues: Skin of leg, NOS Procedures: Surgery Specimen Level IV HEADER OPERATION: Abscess drain PRE-OP DIAGNOSIS: Abscess right sousa TISSUE SUBMITTED: Abscess right sousa MICROSCOPIC DIAGNOSIS Skin lesion of right sousa, biopsy: Dermafibroma. See comment. Denice 03/15/2024 COMMENT Immunohistochemistry ([id number]) supports the above diagnosis. Case has been reviewed in consultation with Dr. Burger who concurs with the above diagnosis. IDC:AMBAR This case was reviewed in consultation with Dr. Orellana of [employer]. The complete consolidated report is viewable in patient's EMR. MICROSCOPIC DESCRIPTION Slides are reviewed. GROSS DESCRIPTION Received in fixative is one container labeled with the patient's name and designated Right sousa. The specimen consists of a elkins white skin ellipse measuring 1.7 x 1.3 x 0.2cm. The specimen is inked, serially sectioned and submitted entirely in one cassette. AMBAR/ 03/08/2024 TC:5 CPT:01059
[2024-03-07 16:00] LABS: Absolute Lymphocyte Count 2.21 X10^3/uL (0.83-4.51); Absolute Neutrophil Count 3.9 X10^3/uL (2.0-7.7); Basophil# 0.02 X10^3/uL; Basophil% 0.3 % (0-1); Eosinophil# 0.24 X10^3/uL; Eosinophils% 3.4 % (0-5); Hematocrit 44.1 % (40-54); Hemoglobin 14.7 g/dL (13.0-16.5); Lymphocyte # 2.21 X10^3/ul (0.83-4.51); Lymphocyte % 31.4 % (19-41); Mean Corp Hgb Conc 33.3 g/dL (32-36); Mean Corpuscular Hgb 28.7 pg (27.0-32.0); Mean Platelet Vol. 11.5 fl (6.2-12.0); Monocyte# 0.66 X10^3/uL; Monocyte% 9.4 % (0-10); NRBC Flagged by Analyzer 0 % (0-5); Neutrophil # 3.88 X10^3/uL (2.7-7.7); Neutrophil % 55.2 % (47-70); Platelet Count 195 K/mm3 (150-450); RBC Distribution Width CV 12.4 % (11.6-14.6); RBC Distribution Width SD 39.2 fl (35.1-43.9); Red Blood Count 5.13 M/mm3 (4.6-6.2)
[2024-03-07 16:25] LABS: ALB/GLOB Ratio 1.2 RATIO (0.9-2.4); AST(SGOT) 26 U/L (15-37); Alanine Aminotransfer ALT/SGPT 39 U/L (16-61); Alkaline Phosphatase 93 U/L (45-117); Anion Gap 5 (5-15); BUN 21 mg/dL (7-18); BUN/Creat Ratio 17.2 RATIO (10-20); Chloride 107 mmol/L (98-107); Cholesterol 190 mg/dL (200); Creatinine, Serum 1.22 mg/dL (0.70-1.30); EST Glomerular Filtration Rate 68 mL/min (>60); Est Glom Filt Rate - Afr Amer 82 mL/min (>60); Globulin 3.2 g/dL (2.2-4.2); Glucose 87 mg/dL (74-106); High Density Lipoprotein 42 mg/dL; Potassium 4.2 mmol/L (3.5-5.1); Protein, Total 7.2 g/dL (6.4-8.2); Sodium Level 139 mmol/L (136-145); Thyroid Stim Hormone (TSH) 3.31 uIU/mL (0.358-3.74); Triglycerides 164 mg/dL; Very Low Density Lipoprotein 33 mg/dL (5-40)
== END | disposition home or self-care (01) ==
PROVIDERS: PCP Family Medicine; Referring Provider Family Medicine; Visit Provider Family Medicine
DX: D23.71 Other benign neoplasm of skin of right lower limb, including hip (principal); I45.6 Pre-excitation syndrome; Z13.1 Encounter for screening for diabetes mellitus
CPT/HCPCS: 36415; 80053; 80061; 84443; 85025; 88305; 88341; 88342

== ENCOUNTER 2024-03-26 11:43 | Outpatient (RCR) | payer BC, SELFPAY ==
[2024-02-27 08:51] VITALS: BMI 33.3
[2024-03-26 12:26] LABS: International Normalized Ratio 2.7; Prothrombin Time (Protime)PT. 28.9 SECONDS (11.7-14.9)
== END 2024-04-25 18:00 | disposition home or self-care (01) ==
LOC: LAB 11:43
PROVIDERS: Referring Provider Internal Medicine Cardiovascular Disease; Visit Provider Internal Medicine Cardiovascular Disease
DX: Z79.01 Long term (current) use of anticoagulants (principal); Z95.2 Presence of prosthetic heart valve; Q23.1 Congenital insufficiency of aortic valve
CPT/HCPCS: 36415; 85610

== ENCOUNTER 2024-04-13 06:00 | Day surgery (SDC) | payer BC, SELFPAY ==
--- NOTE | 2024-04-13 | IMM_PTH ---
PATIENT: SERGE MOON LOC: [facility] [place] U#:[id number] AGE/SX: 48/M ROOM: RE04/13/[address]: Dr. Betty Montero MD : 1975 BED: DIS: 04/13/2024 SPEC #: [id number] RECD: 04/16/24 12:11 STATUS: NICOLA REQ #: [id number] BHAVESH: 04/13/24 00:[address]: Betty Montero DEPT: IMMUNOHISTOCHEMISTRY RECD BY: Ernie Real ENTERED: 04/16/24 12:11 SP TYPE: IMMUNO OTHR DR: Olu Guzmán MD Tissues: Skin of knee, NOS Procedures: SMA (add) CD34 (add) DESMIN (add) KI-67 (add) P53 (add) Vimentin (add) SMM (add) NEUROFIL (add) Pankeratin (initial) S-100 (add) PHYSICIAN & INSTITUTION [place] [address] SPECIMEN INFORMATION: Tissue Source: Lesion right medial knee, dermatofibroma Clinical Info: Lesion right medial knee which was biopsied and consistent with dermatofibroma Specimen Number: [id number] CPT code: [id number] METHODOLOGY: Deparaffinized sections of prefer/formalin-fixed tissue or PAP/DQ stained slides are incubated with monoclonal/polyclonal antibodies/oligonucleotide probes. Localization is made via biotin free immunoperoxidase method. Appropriate controls are performed and reacted as expected. Results on target cell population are indicated in the following table: RESULTS: ANTIBODY / CLONE RESULT AE1-3 (AE1/AE3/PCK26) negative Vimentin (V9) positive CD34 (QBEnd-10) negative Actin (1A4) negative Myosin (simms1) negative Desmin (CE-R-11) negative S-100 (4C4.9) negative Neurofil (2F11) negative P53 (DO-7) positive, wild type Ki-67 (30-9) positive, rare cell These tests were developed and their performance characteristics determined by [facility]. They may not have been cleared or approved by the U.S. Food and Drug Administration. The FDA has determined that such clearance or approval is not necessary. The above immunohistochemical/dualISH markers are ordered and reviewed by the Pathologist. INTERPRETATION: Skin of knee lesion, excisional biopsy: Consistent with dermatofibroma. Case has been reviewed in consultation with Dr. Burger who concurs with the above diagnosis. IDC:SJ AM/mr 04/17/2024
--- NOTE | 2024-04-13 | LES_PTH ---
PATIENT: SERGE MOON LOC: [facility] [place] U#:[id number] AGE/SX: 48/M ROOM: RE04/13/[address]: Dr. Betty Montero MD : 1975 BED: DIS: 04/13/2024 SPEC #: [id number] RECD: 04/13/24 13:47 STATUS: NICOLA REQ #: [id number] BHAVESH: 04/13/24 00:[address]: Betty Montero DEPT: SURGICAL PATHOLOGY RECD BY: Alejandro Danielson ENTERED: 04/13/24 13:48 SP TYPE: Lesion OTHR DR: Olu Guzmán MD Tissues: Skin of knee, NOS Procedures: Surgery Specimen Level IV HEADER OPERATION: Excision lesion right knee area 3.5cm with intermediate closure PRE-OP DIAGNOSIS: Lesion right medial knee which was biopsied and consistent with dermatofibroma TISSUE SUBMITTED: Lesion right medial knee, dermatofibroma MICROSCOPIC DIAGNOSIS Skin lesion right medial knee, biopsy: 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 See comment. / 04/16/2024 COMMENT Immunohistochemistry ([id number]) supports the above diagnosis. Reference is made to the patient's previous right sousa biopsy with diagnosis of dermatofibroma ([id number]). The present lesion extends to the deep margin of excision. Clinical correlation is suggested. Case has been reviewed in consultation with Dr. Burger who concurs with the above diagnosis. IDC:AMBAR MICROSCOPIC DESCRIPTION Slides are reviewed. GROSS DESCRIPTION Received in fixative is one container labeled with the patient's name and designated Lesion right medial knee dermatofibroma. The specimen consists of elkins, white skin ellipse measuring 2.5 x 1.8 x 0.5cm. Focal area of ulceration noted on the surface. The specimen is inked, serially sectioned and submitted entirely in two cassettes. AMBAR/ 04/13/2024 TC:3 [facility]:[id number]
[2024-04-13 06:29] VITALS: BP 136/84; PULSE 62; RESP 16; TEMP 36.2; O2SAT 97; BMI 33.4
--- NOTE | 2024-04-13 07:06 | PCM.HP.BLA ---
History and Physical Date of Admission: 04/13/24 The patient is examined and there are no changes from the exam of 03/20/24. He presents for excision lesion right medial knee which was biopsied and c/w dermatofibroma. Informed consent was obtained. Pt's questions were answered. Assessment & Plan Assessment/Plan (1) Neoplasm of uncertain behavior of skin of lower extremity: PLAN: Plan Excision lesion right medial knee
[2024-04-13 07:14] VITALS: BP 130/80; O2SAT 94; O2SAT 95; O2SAT 96
[2024-04-13] MEDS: Lidocaine 1% /Epi 1:100 9 ML, Sodium Bicarbonate 1 MEQ OPERA.SITE (07:35)
[2024-04-13 07:40] VITALS: BP 123/77; O2SAT 100; O2SAT 98; O2SAT 99
[2024-04-13 08:15] VITALS: BP 131/73; PULSE 57; RESP 14; TEMP 36.3; O2SAT 97
--- NOTE | 2024-04-13 08:18 | PCM.OPRPT ---
Problems Associated Problem List Diagnoses (1) Neoplasm of uncertain behavior of skin of lower extremity: (2) Dermatofibroma of lower leg: Report of Operation Date of Procedure: 04/13/24 Pre-Operative Diagnosis: Neoplasm right leg Post-Operative Diagnosis: same Surgery/Procedure Performed:: Excision lesion right leg (3.5cm) with intermediate closure Surgeon: Betty Montero Type of Anesthesia: Local Specimen's removed: neoplasm leg Estimated Blood Loss (mL): minimal Description of Procedure: The patient is brought to the OR and placed in a supine position. The leg is prepped and draped. 1% xylocaine with epi used for local anesthesia. The site is excised and passed off to be sent to pathology. Hemostasis controlled with cautery. The wound is closed with 3-0 Monocryl in sq and dermis. A subcuticular suture is also placed. Skin edge closure reinforced with prolene interupted. Dressed with steri-strips, gauze and coban wrap. Complications none Admit VTE Documentation VTE Mechan Device Prophylaxis: None Reason prophylaxis not ordered:: Treatment Not Indicated
--- NOTE | 2024-04-13 08:22 | DCINST_ITS ---
Discharge Instructions Dressing / Incision Additional Dressing/Incision Instructions:: May remove the wrap to shower. The paper tape may fall off if it gets wet. Redress the area with gauze and the wrap daily until seen in the office. Take the oral antibiotic (Keflex) 2 x a day until finished. Follow Up Care Please Follow Up With: Betty Montero MD When: 1-2 weeks Test Results: Test results from this visit will be discussed in further detail at your follow- up appointment, if applicable. Discharge Plan Admission Attending Provider: Betty Montero Primary Care Provider: Olu Guzmán Instructions Print Language: Montserratian Discharge Orders/Prescriptions Prescriptions: New cephalexin 500 mg capsule 500 mg PO BID 7 Days Qty: 14 0RF No Action magnesium citrate 125 mg capsule 125 mg PO BID cholecalciferol (vitamin D3) 25 mcg (1,000 unit) capsule 25 mcg PO DAILY amoxicillin 500 mg tablet 2,000 mg PO .COMPLEX PRN (Reason: Prior to Dental appointment) Qty: 8 6RF Rx Instructions: 2,000 mg PO 1 hour prior to dental visits. PRN; warfarin 2.5 mg tablet 2.5 mg PO .COMPLEX Qty: 45 3RF Protocol: Dose Management Condition: Tuesday Dose/Route: 5 mg Instruction: 1 x 5 mg tablet Condition: Tuesday Dose/Route: 5 mg Instruction: 1 x 5 mg tablet Condition: Tuesday Dose/Route: 5 mg Instruction: 1 x 5 mg tablet Condition: Tuesday Dose/Route: 5 mg Instruction: 1 x 5 mg tablet Condition: Dose/Route: 5 mg Instruction: 1 x 5 mg tablet Condition: Tuesday Dose/Route: 5 mg Instruction: 1 x 5 mg tablet Condition: Tuesday Dose/Route: 5 mg Instruction: 1 x 5 mg tablet Protocol Text: Adjustment Start Date: Tuesday03/26/24 INR Value: 2.7 INR Date: 03/26/24 Recheck Date: 04/25/24 Rx Instructions: Take 1/2 tablet with 1/2 of a 5 mg tablet to = 3.75 on , , Sat, and Sun: OR as directed. Please give 45 PILLS: pt takes a whole 5mg tablet on Tue, Tues, Tue. Thanks. warfarin 5 mg tablet 5 mg PO .COMPLEX Qty: 90 3RF Protocol: Dose Management Condition: Tuesday Dose/Route: 5 mg Instruction: 1 x 5 mg tablet Condition: Tuesday Dose/Route: 5 mg Instruction: 1 x 5 mg tablet Condition: Tuesday Dose/Route: 5 mg Instruction: 1 x 5 mg tablet Condition: Tuesday Dose/Route: 5 mg Instruction: 1 x 5 mg tablet Condition: Dose/Route: 5 mg Instruction: 1 x 5 mg tablet Condition: Tuesday Dose/Route: 5 mg Instruction: 1 x 5 mg tablet Condition: Tuesday Dose/Route: 5 mg Instruction: 1 x 5 mg tablet Protocol Text: Adjustment Start Date: Tuesday03/26/24 INR Value: 2.7 INR Date: 03/26/24 Recheck Date: 04/25/24 Rx Instructions: Take a WHOLE tablet on Tue, , and Tue. Take 1/2 tablet with 1/2 of a 2.5 mg tablet to = 3.75 on , , Tue, and Tue. Please give 90 tablets for dose changes. Thanks. metoprolol tartrate 100 mg tablet 100 mg PO BID Qty: 180 3RF Referrals / Follow Up: Olu Guzmán MD [Primary Care Provider] - Disposition Disposition (needs filled in before D/C Order can be placed): Home, Self Care
== END 2024-04-13 08:40 | disposition home or self-care (01) ==
LOC: SDC 06:00 → AC 06:02
PROVIDERS: PCP Family Medicine; Referring Provider Plastic Surgery; Visit Provider Plastic Surgery
PROC: (CPT 11406; principal; 2024-04-13 07:20)
DX: D23.71 Other benign neoplasm of skin of right lower limb, including hip (principal); Z79.899 Other long term (current) drug therapy; Z79.01 Long term (current) use of anticoagulants
CPT/HCPCS: 11406; 12032; 88305; 88341; 88342

== ENCOUNTER 2024-05-29 12:14 | Outpatient (RCR) | payer BC, SELFPAY ==
[2024-04-25 20:24] VITALS: BMI 33.3
[2024-05-29 13:05] LABS: International Normalized Ratio 2.6; Prothrombin Time (Protime)PT. 27.4 SECONDS (11.7-14.9)
== END 2024-05-29 18:00 | disposition home or self-care (01) ==
LOC: LAB 12:14
PROVIDERS: PCP Family Medicine; Referring Provider Internal Medicine Cardiovascular Disease; Visit Provider Internal Medicine Cardiovascular Disease
DX: Z79.01 Long term (current) use of anticoagulants (principal); Z95.2 Presence of prosthetic heart valve; Q23.1 Congenital insufficiency of aortic valve
CPT/HCPCS: 36415; 85610

== ENCOUNTER 2024-07-05 12:11 | Outpatient (RCR) | payer BC, SELFPAY ==
[2024-06-25 22:58] VITALS: BMI 33.3
[2024-07-05 13:32] LABS: International Normalized Ratio 1.9; Prothrombin Time (Protime)PT. 21.8 SECONDS (11.7-14.9)
== END 2024-07-05 18:00 | disposition home or self-care (01) ==
LOC: LAB 12:11
PROVIDERS: PCP Family Medicine; Referring Provider Internal Medicine Cardiovascular Disease; Visit Provider Internal Medicine Cardiovascular Disease
DX: Z79.01 Long term (current) use of anticoagulants (principal); Z95.2 Presence of prosthetic heart valve; Q23.1 Congenital insufficiency of aortic valve
CPT/HCPCS: 36415; 85610

== ENCOUNTER 2024-07-06 07:09 | Day surgery (SDC) | payer BC, SELFPAY ==
[2024-07-06] VITALS (7 sets, daily range): BP systolic 110–137; BP diastolic 72–88; PULSE 53–73; RESP 14–20; TEMP 36.1–36.6; O2SAT 65–99; BMI 31.8
--- NOTE | 2024-07-06 07:31 | PRE.ANES_ITS ---
ASA Classification* ASA Classification ASA Classification: 3 Assessment & Plan Anesthesia* Anesthesia Assessment Anesthesia Assessment: Discussed sedation and/or anesthesia options, risks, benefits, and alternatives with patient/parents/legal guardian/POA. Questions invited. The patient/parents/legal guardian/POA seems to understand and agrees to proceed with anesthesia plan. Reviewed the physical assessment, medical history, allergy history and patient home medications list prior to surgery/procedure/anesthetic and documented any changes. Performed airway and anesthesia risk assessments. Anesthesia Type Anesthesia Type: MAC (see written pre anesthesia record for full assessment) Anesthesia Focused Assessment* Airway Assessment Mouth opens: >3 cm Mallampati Score: II Focused Labs Anesthesia Preop lab: CBC WBC 7.0 K/mm3 (4.4-11.0) 03/07/24 12:44 RBC 5.13 M/mm3 (4.6-6.2) 03/07/24 12:44 Hgb 14.7 g/dL (13.0-16.5) 03/07/24 12:44 Hct 44.1 % (40-54) 03/07/24 12:44 Plt Count 195 K/mm3 (150-450) 03/07/24 12:44 CHEMISTRY Potassium 4.2 mmol/L (3.5-5.1) 03/07/24 12:44 Sodium 139 mmol/L (136-145) 03/07/24 12:44 Magnesium 2.2 mg/dL (1.8-2.4) 04/22/17 12:36 BUN 21 mg/dL (7-18) H 03/07/24 12:44 Creatinine 1.22 mg/dL (0.70-1.30) 03/07/24 12:44 Glucose 87 mg/dL (74-106) 03/07/24 12:44 TSH 3.31 uIU/mL (0.358-3.74) 03/07/24 12:44 COAG PT 21.8 SECONDS (11.7-14.9) H 07/05/24 12:15 Pre-Assessment Diagnosis/Proposed Procedure Planned Operative Procedure(s): CSCOPE Anesthesia History Anesthesia History - microbiology laboratory manager: Anesthesia History - microbiology laboratory manager Hx Hospitalization No 07/04/24 15:02 Any Problems With Anesthesia No 07/04/24 15:02 Cholinesterase deficiency No 07/04/24 15:02 You/Your Family Experience No 07/04/24 15:02 fever (hyperthermia) with Relationship Recent Exposure to Contagious No 04/13/24 06:29 Disease Does patient have nerve No 07/04/24 15:02 stimulator Patient instructed to have device shut off --Does patient have Pacemaker or ICD? When Was Last Pacemaker Check QUESTION #4 FULL TEXT: You/Your Family Experience fever (hyperthermia) with Anesthesia Last Oral Intake Last Oral intake: Last Oral Intake NPO since Meds taken in AM with sips of water? Meds patient instructed to take am of surgery PONV PONV - microbiology laboratory manager: PONV - microbiology laboratory manager Female No 07/04/24 15:02 HX of Motion Sickness No 07/04/24 15:02 HX of N/V After Surgery No 07/04/24 15:02 Non-Smoker Yes 07/04/24 15:02 Duration of Surgery greater No 07/04/24 15:02 than 60 minutes Number of Risk Factors 1 07/04/24 15:02 PONV Score Low Risk 07/04/24 15:02 Height & Weight Height & Weight: Anesthesia: Height & Weight Height 6 ft 3 in 06/12/24 07:54 Respiratory Assessment Respiratory Assessment - microbiology laboratory manager: Respiratory Tract Infection Hx - microbiology laboratory manager Hx Respiratory Tract Infection No 07/04/24 15:02 STOP Sleep Apnea STOP Sleep Apnea - microbiology laboratory manager: STOP Sleep Apnea - microbiology laboratory manager Hx Hypertension Yes: CONTROLLED WITH MED 07/04/24 15:02 Hx Sleep Apnea No 07/04/24 15:02 CPAP BIPAP Do you snore loudly (louder No 07/04/24 15:02 than talking or can be heard Do you often feel tired/ No 07/04/24 15:02 fatigued/ sleepy during daytime? Has anyone observed you stop No 07/04/24 15:02 breathing during sleep? STOP Results Negative 07/04/24 15:02 QUESTION #5 FULL TEXT : Do you snore loudly (louder than talking or can be heard through closed doors)? Tobacco Use History Tobacco Use History - microbiology laboratory manager: Tobacco Use History - microbiology laboratory manager Tobacco Use Smoking Status Never smoker 07/04/24 15:02 Hx Tobacco Use No 07/04/24 15:02 Years Smoking Packs Smoked per Day Smoking Cessation Date was within the last 15 years Hx Smoking Cessation Date Hx Smoking Cessation Counseling Hematologic Medial History Hematologic Hx - microbiology laboratory manager: Hematologic Medical Hx - rn documentation specialist Hx of Blood Transfusion No 07/04/24 15:02 Hx of Transfusion in last 3 No 07/04/24 15:02 Months Date of Last Transfusion (if within last 3 months) Ever experience any problems No 07/04/24 15:02 with transfusion(s)? Specify any problems Hx of Preganancy in last 3 N/A 07/04/24 15:02 Months Nurse Filling Out Transfusion NBUCHER 07/04/24 15:02 & Questions: Date: 07/04/24 07/04/24 15:02 Time: 15:03 07/04/24 15:02 Patient unable to answer at this time (ie. confused, unrespo /Reproduction History /Reproductive History - microbiology laboratory manager: /Reproductive Hx- microbiology laboratory manager Hx Now Gestational Age (in weeks): EDC: Hx Hx Para Hx Section SAB No 07/04/24 15:02 [facility] Medical History Wears glasses Non-smoker History of echocardiogram Cardiology follow-up encounter History of cardiac murmur History of Iwoon-Ngjoemebx-Gkkry syndrome History of bicuspid aortic valve History of sebaceous cyst Bicuspid aortic valve Nonrheumatic aortic (valve) stenosis with insufficiency Obesity Aortic stenosis with bicuspid valve Hepatitis Migraines Dislocation of patella, left, closed Fracture of distal end of left femur Ycude-Nraspkbwf-Nohhw (WPW) syndrome 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 current use of anticoagulant Home Medications ?Medication ?Instructions ?Recorded ?Last Taken ?Type magnesium citrate 125 mg capsule 125 mg PO BID SUPPLEMENT 11/08/19 09/27/21 History amoxicillin 500 mg tablet 2,000 mg (4 x 500 mg) PO .COMPLEX 02/26/22 Unknown Rx PRN Prior to Dental appointment #8 tabs cholecalciferol (vitamin D3) 25 25 mcg PO DAILY 10/28/22 Unknown History mcg (1,000 unit) capsule metoprolol tartrate 100 mg tablet 100 mg PO BID HEART #180 tabs 02/09/24 Unknown Rx warfarin 2.5 mg tablet 2.5 mg PO .COMPLEX #90 tabs 05/29/24 Unknown Rx warfarin 5 mg tablet 5 mg PO .COMPLEX #90 tabs 05/29/24 Unknown Rx Allergy/AdvReac Type Severity Reaction Status Date / Time No Known Allergies Allergy Verified 07/04/24 15:00 Family History Father Neg FH of ASCVD Arthritis Grandfather Dementia Mother Alzheimer disease Surgical History History of prior ablation treatment History of open reduction and internal fixation (ORIF) procedure (09/2021) History of right and left heart catheterization (04/23/16) History of vasectomy History of cardiac radiofrequency ablation (RFA) (12/01/16) H/O mechanical aortic valve replacement (08/10/16) Social History Smoking Status: Never smoker alcohol intake: current alcohol intake frequency: a few times a week Alcohol type: wine substance use type: does not use additional social history: pt denies smoking, denies marijuana use, denies edibles, denies aspirin and denies ibuprofen use Review of Systems (Anesthesia) ROS Narrative System reviewed and no additional complaints, except as documented.
[2024-07-06 07:59] LABS: International Normalized Ratio 1.6; Prothrombin Time (Protime)PT. 18.8 SECONDS (11.7-14.9)
--- NOTE | 2024-07-06 08:05 | HP.PCM_ITS ---
[facility] - General General Date of Admission: 07/06/24 Date of Service: 07/06/24 Chief Complaint: Colon cancer screening HPI Narrative SERGE MOON, is a 48 M who presents for screening colonoscopy. He has had no previous colonoscopy.. No family history of colon polyps or colon cancers. He denies any type of GI issues or complaints. This will be his first colonoscopy. [facility] Medical History (Updated 07/06/24 @ 08:[address] 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 Home Medications ?Medication ?Instructions ?Recorded ?Last Taken ?Type magnesium citrate 125 mg capsule 125 mg PO BID SUPPLEMENT 11/08/19 09/27/21 History amoxicillin 500 mg tablet 2,000 mg (4 x 500 mg) PO .COMPLEX 02/26/22 Unknown Rx PRN Prior to Dental appointment #8 tabs cholecalciferol (vitamin D3) 25 25 mcg PO DAILY 10/28/22 Unknown History mcg (1,000 unit) capsule metoprolol tartrate 100 mg tablet 100 mg PO BID HEART #180 tabs 02/09/24 07/06/24 Rx warfarin 2.5 mg tablet 2.5 mg PO .COMPLEX #90 tabs 05/29/24 Unknown Rx warfarin 5 mg tablet 5 mg PO .COMPLEX #90 tabs 05/29/24 Unknown Rx Allergy/AdvReac Type Severity Reaction Status Date / Time No Known Allergies Allergy Verified 07/06/24 07:43 Family History Father Neg FH of ASCVD Arthritis Grandfather Dementia Mother Alzheimer disease Surgical History History of prior ablation treatment History of open reduction and internal fixation (ORIF) procedure (09/2021) History of right and left heart catheterization (04/23/16) History of vasectomy History of cardiac radiofrequency ablation (RFA) (12/01/16) H/O mechanical aortic valve replacement (08/10/16) Social History Smoking Status: Never smoker alcohol intake: current alcohol intake frequency: a few times a week Alcohol type: wine substance use type: does not use additional social history: pt denies smoking, denies marijuana use, denies edibles, denies aspirin and denies ibuprofen use ROS Constitutional Constitutional: Reports systems reviewed and no addt'l complaints, except as documented Eyes Eyes: Reports systems reviewed and no addt'l complaints, except as documented ENT HEENT: Reports systems reviewed and no addt'l complaints, except as documented Cardiovascular Cardiovascular: Reports systems reviewed and no addt'l complaints, except as documented Respiratory/Chest Respiratory/Chest: Reports systems reviewed and no addt'l complaints, except as documented Gastrointestinal Gastrointestinal: Reports systems reviewed and no addt'l complaints, except as documented Vital Signs Vital Signs Vital Signs: 07/06/24 07:43 07/06/24 07:43 Temperature 98 F Temperature Source Temporal Pulse Rate 73 Respiratory Rate 18 Respiratory Pattern Normal Blood Pressure 121/88 H Blood Pressure Mean 99 Blood Pressure Source Monitor Blood Pressure Position Semi-Fowlers Blood Pressure Location Right Arm Pulse Ox 99 Oxygen Delivery Method Room Air Weight Weight: 254 lb 6.615 oz Body Mass Index (BMI) 31.8 Physical Exam Const alert and oriented x3 General Appearance: cooperative and comfortable HEENT normocephalic Head and Scalp: normocephalic Eyes PERRL Results Lab / Micro Data Labs: Laboratory Results - last 24 hr 07/06/24 07:40: PT 18.8 H, INR 1.6 Assessment & Plan Assessment/Plan (1) Colon cancer screening: PLAN: Plan The patient is a 48-year-old male in need of a screening colonoscopy. He has had no previous colonoscopy. No family history. No symptoms. We discussed the details of the planned procedure including risks benefits and alternatives. He wishes to proceed. This will begin momentarily. Charges/Coding Visit Charges Inpatient E&M: 84425 Init Hosp L1
--- NOTE | 2024-07-06 08:42 | OP.COLON_ITS ---
Patient Name: Joey Tierney Procedure Date: 07/06/2024 7:59 AM Date of : 1975 Age: 48 Procedure: Colonoscopy Indications: Screening for colorectal malignant neoplasm Providers: Leif Quiroga MD Referring MD: Leif Quiroga MD Medicines: Propofol per Anesthesia Patient Profile: Refer to note in patient chart for documentation of history and physical. Last Colonoscopy: none. The patient's first colonoscopy is today. Complications: No immediate complications. Estimated blood loss: None. Procedure: Pre-Anesthesia Assessment: - Prior to the procedure, a History and Physical was performed, and patient medications and allergies were reviewed. The patient's tolerance of previous anesthesia was also reviewed. The risks and benefits of the procedure and the sedation options and risks were discussed with the patient. All questions were answered, and informed consent was obtained. Prior Anticoagulants: The patient has taken Coumadin (warfarin), last dose was 5 days prior to procedure. ASA Grade Assessment: III - A patient with severe systemic disease. After reviewing the risks and benefits, the patient was deemed in satisfactory condition to undergo the procedure. After I obtained informed consent, the scope was passed under direct vision. Throughout the procedure, the patient's blood pressure, pulse, and oxygen saturations were monitored continuously. The adult colonoscope was introduced through the anus and advanced to the cecum, identified by appendiceal orifice and ileocecal valve. The ileocecal valve, appendiceal orifice, and rectum were photographed. The entire colon was well visualized. The colonoscopy was performed without difficulty. The patient tolerated the procedure well. The quality of the bowel preparation was adequate. Moderate Sedation: See the other procedure note for documentation of moderate sedation with intraservice time. Scope In: 8:16:13 AM Scope Withdrawal Time 0 hours 13 minutes 39 seconds Scope Out: 8:37:50 AM Total Procedure Duration Time 0 hours 21 minutes 37 seconds Findings: The perianal and digital rectal examinations were normal. Internal hemorrhoids were found during retroflexion. The hemorrhoids were mild. The exam was otherwise without abnormality on direct and retroflexion views. Impression: - Internal hemorrhoids. - The examination was otherwise normal on direct and retroflexion views. - No specimens collected. Recommendation: - Discharge patient to home. - High fiber diet indefinitely. - Repeat colonoscopy in 10 years for screening purposes. - Return to my office PRN. - Resume Coumadin (warfarin) at prior dose today. Procedure Code(s): --- Professional --- 92070, Colonoscopy, flexible; diagnostic, including collection of specimen(s) by brushing or washing, when performed (separate procedure) Diagnosis Code(s): --- Professional --- K64.8, Other hemorrhoids Z12.11, Encounter for screening for malignant neoplasm of colon CPT copyright 2021 [employer]. All rights reserved. The codes documented in this report are preliminary and upon early interventionist review may be revised to meet current compliance requirements. Leif Quiroga MD 07/06/2024 8:42:12 AM This report has been signed electronically. Number of Addenda: 0 Note Initiated On: 07/06/2024 7:59 AM
--- NOTE | 2024-07-06 08:43 | OP.CCLET_ITS ---
07/06/2024 Olu Guzmán Md Re : Colonoscopy procedure for Joey Tierney Dear Arielle This procedure was performed on Saturday, July 06, 2024. My impressions and recommendations are as follows: Impressions : - Internal hemorrhoids. - The examination was otherwise normal on direct and retroflexion views. - No specimens collected. Recommendations : - Discharge patient to home. - High fiber diet indefinitely. - Repeat colonoscopy in 10 years for screening purposes. - Return to my office PRN. - Resume Coumadin (warfarin) at prior dose today. My findings are described in the full procedure note, which is enclosed. If I can be of further assistance, please feel free to contact me at . Sincerely, Leif Quiroga MD 07/06/2024 8:42:12 AM This report has been signed electronically.
--- NOTE | 2024-07-06 08:45 | PCM.POST.ANE ---
Anesthesia: Postop Eval I Current Vital Signs Temperature: 96.9 F Pulse Rate: 65 Blood Pressure: 137/72 Respiratory Rate: 20 Pulse Ox: 65 Oxygen Delivery Method: Room Air Assessment Airway patent: Yes Spontaneous unlabored respirations: Yes Mental status: Awake nausea: No Vomiting: No Anesthesia Complication: No Fluid Hydration Crystalloid volume administer (ml): 10 Total IV fluid infused: 10 Progress Note Anesthesia document: Postop Eval 1 completed: Yes
--- NOTE | 2024-07-06 08:49 | POSTOPAN2_ITS ---
Anesthesia Postop Eval I Sum Postop Eval Completion status Anesthesia document: Postop Eval 1 completed: Yes Anesthesia Postop Eval I Summary Anesthesia Postop Eval I Summary: Anesthesia Postop Eval I: Assessment Summary Airway patent Yes 07/06/24 08:46 SOLAR LAB [email or web address] Spontaneous unlabored Yes 07/06/24 08:46 SOLAR LAB [email or web address] respirations Mental status Awake 07/06/24 08:46 SOLAR LAB [email or web address] nausea No 07/06/24 08:46 SOLAR LAB [email or web address] Vomiting No 07/06/24 08:46 SOLAR LAB [email or web address] Anesthesia Postop Eval I: Fluid Summary Crystalloid volume administer 10 07/06/24 08:46 SOLAR LAB [email or web address] (ml) Colloids volume administered ( ml) Blood Product volume administered (ml) Total IV fluid infused 10 07/06/24 08:46 SOLAR LAB [email or web address] Anesthesia Postop Eval I: Summary Notes Anesthesia Complication No 07/06/24 08:46 SOLAR LAB [email or web address] Anesthesia Complication Comment: Post-operative progress note Anesthesia: Postop Eval II Evaluation Mental status: Awake Pain Level: 0 nausea: No Vomiting: No
--- NOTE | 2024-07-06 08:49 | PCM.POSTANE2 ---
Anesthesia Postop Eval I Sum Postop Eval Completion status Anesthesia document: Postop Eval 1 completed: Yes Anesthesia Postop Eval I Summary Anesthesia Postop Eval I Summary: Anesthesia Postop Eval I: Assessment Summary Airway patent Yes 07/06/24 08:46 [email or web address] Spontaneous unlabored Yes 07/06/24 08:46 [email or web address] respirations Mental status Awake 07/06/24 08:46 [email or web address] nausea No 07/06/24 08:46 [email or web address] Vomiting No 07/06/24 08:46 [email or web address] Anesthesia Postop Eval I: Fluid Summary Crystalloid volume administer 10 07/06/24 08:46 [email or web address] (ml) Colloids volume administered ( ml) Blood Product volume administered (ml) Total IV fluid infused 10 07/06/24 08:46 [email or web address] Anesthesia Postop Eval I: Summary Notes Anesthesia Complication No 07/06/24 08:46 [email or web address] Anesthesia Complication Comment: Post-operative progress note Anesthesia: Postop Eval II Evaluation Mental status: Awake Pain Level: 0 nausea: No Vomiting: No
[2024-07-06 09:31] LABS: INR Fingerstick 1.7; Prothrombin Time Fingerstick 18.1 SEC (11.7-14.9)
== END 2024-07-06 09:26 | disposition home or self-care (01) ==
LOC: EN 07:09 → AC 07:10
PROVIDERS: PCP Family Medicine; Referring Provider Surgery; Visit Provider Surgery
PROC: 0DJD8ZZ Inspection of Lower Intestinal Tract, Via Natural or Artificial Opening Endoscopic (ICD-10-PCS; CPT 45378; principal; 2024-07-06 08:10)
DX: Z12.11 Encounter for screening for malignant neoplasm of colon (principal); K64.8 Other hemorrhoids; I45.6 Pre-excitation syndrome; Z79.01 Long term (current) use of anticoagulants; Z79.899 Other long term (current) drug therapy; Z95.2 Presence of prosthetic heart valve
CPT/HCPCS: 45378; 36416; 85610; A4216; J2405

== ENCOUNTER 2024-09-07 12:19 | Outpatient (RCR) | payer BC, SELFPAY ==
[2024-07-26 20:54] VITALS: BMI 33.3
[2024-09-07 14:02] LABS: International Normalized Ratio 2.4; Prothrombin Time (Protime)PT. 26.3 SECONDS (11.7-14.9)
== END 2024-09-07 18:00 | disposition home or self-care (01) ==
LOC: LAB 12:19
PROVIDERS: PCP Family Medicine; Referring Provider Internal Medicine Cardiovascular Disease; Visit Provider Internal Medicine Cardiovascular Disease
DX: Z79.01 Long term (current) use of anticoagulants (principal); Z95.2 Presence of prosthetic heart valve; Q23.1 Congenital insufficiency of aortic valve

== ENCOUNTER 2024-11-22 13:19 | Outpatient (RCR) | payer BC, SELFPAY ==
[2024-09-26 03:48] VITALS: BMI 33.3
[2024-11-22 13:47] LABS: International Normalized Ratio 2.1; Prothrombin Time (Protime)PT. 24.1 SECONDS (11.7-14.9)
== END 2024-11-23 18:00 | disposition home or self-care (01) ==
LOC: LAB 13:19
PROVIDERS: PCP Family Medicine; Referring Provider Internal Medicine Cardiovascular Disease; Visit Provider Internal Medicine Cardiovascular Disease
DX: Z79.01 Long term (current) use of anticoagulants (principal); Z95.2 Presence of prosthetic heart valve; Q23.1 Congenital insufficiency of aortic valve
CPT/HCPCS: 36415; 85610

== ENCOUNTER 2025-01-24 12:13 | Outpatient (RCR) | payer BC, SELFPAY ==
[2024-11-24 03:41] VITALS: BMI 33.3
[2025-01-24 14:04] LABS: International Normalized Ratio 2.6; Prothrombin Time (Protime)PT. 28.1 SECONDS (11.7-14.9)
== END 2025-01-24 18:00 | disposition home or self-care (01) ==
LOC: LAB 12:13
PROVIDERS: PCP Family Medicine; Referring Provider Internal Medicine Cardiovascular Disease; Visit Provider Internal Medicine Cardiovascular Disease
DX: Z79.01 Long term (current) use of anticoagulants (principal); Z95.2 Presence of prosthetic heart valve; Q23.1 Congenital insufficiency of aortic valve
CPT/HCPCS: 36415; 85610

== ENCOUNTER 2025-03-22 11:56 | Outpatient (RCR) | payer BC, SELFPAY ==
[2025-02-23 20:36] VITALS: BMI 33.3
[2025-03-22 12:15] LABS: Absolute Lymphocyte Count 1.59 X10^3/uL (0.83-4.51); Absolute Neutrophil Count 3.4 X10^3/uL (2.0-7.7); Basophil# 0.02 X10^3/uL; Basophil% 0.4 % (0-1); Eosinophil# 0.17 X10^3/uL; Hematocrit 42.1 % (40-54); Hemoglobin 14.8 g/dL (13.0-16.5); Lymphocyte # 1.59 X10^3/ul (0.83-4.51); Lymphocyte % 28.1 % (19-41); Mean Corp Hgb Conc 35.2 g/dL (32-36); Mean Corpuscular Hgb 29.7 pg (27.0-32.0); Mean Corpuscular Volume 84.5 fL (80-94); Monocyte# 0.47 X10^3/uL; Monocyte% 8.3 % (0-10); NRBC Flagged by Analyzer 0 % (0-5); Platelet Count 174 K/mm3 (150-450); RBC Distribution Width CV 12.5 % (11.6-14.6); RBC Distribution Width SD 37.9 fl (35.1-43.9); Red Blood Count 4.98 M/mm3 (4.6-6.2); White Blood Count 5.7 K/mm3 (4.4-11.0)
[2025-03-22 12:51] LABS: International Normalized Ratio 2.1; Prothrombin Time (Protime)PT. 23.6 SECONDS (11.7-14.9)
[2025-03-22 14:20] LABS: Cholesterol 191 mg/dL (<=200); High Density Lipoprotein 40 mg/dL; Low Density Lipoprotein Calc. 109 mg/dL; Triglycerides 211 mg/dL; Very Low Density Lipoprotein 42 mg/dL (5-40); Vitamin D,25 Hydroxy 27.9 ng/mL (30-100); cholesterol:hdl ratio screen 4.81
[2025-03-22 14:35] LABS: ALB/GLOB Ratio 1.8 RATIO (0.9-2.4); AST(SGOT) 34 U/L (<=37); Alanine Aminotransfer ALT/SGPT 37 U/L (<=46); Albumin, Serum 4.5 g/dL (3.5-5.0); Alkaline Phosphatase 84 U/L (40-129); Anion Gap 11 (5-15); BUN 24 mg/dL (4-19); BUN/Creat Ratio 22.8 RATIO (10-20); Calcium,Total 9.4 mg/dL (7.6-11.0); Carbon Dioxide 23.8 mmol/L (21.0-32.0); Chloride 105 mmol/L (98-108); Creatinine, Serum 1.07 mg/dL (0.70-1.20); EST Glomerular Filtration Rate 86 (>60); Globulin 2.5 g/dL (2.2-4.2); Glucose 92 mg/dL (70-99); Potassium 4.8 mmol/L (3.3-5.1); Sodium Level 139 mmol/L (133-145); Total Bilirubin 0.62 mg/dL (0.00-1.30)
== END 2025-03-22 18:00 | disposition home or self-care (01) ==
LOC: LAB 11:56
PROVIDERS: PCP Family Medicine; Referring Provider Internal Medicine Cardiovascular Disease; Visit Provider Internal Medicine Cardiovascular Disease
DX: Z79.01 Long term (current) use of anticoagulants (principal); Z95.2 Presence of prosthetic heart valve; Q23.1 Congenital insufficiency of aortic valve; Z13.220 Encounter for screening for lipoid disorders; Z13.1 Encounter for screening for diabetes mellitus; I45.6 Pre-excitation syndrome
CPT/HCPCS: 36415; 80053; 80061; 82306; 85025; 85610

== ENCOUNTER 2025-04-23 12:14 | Outpatient (RCR) | payer BC, SELFPAY ==
[2025-04-23 14:07] LABS: Prothrombin Time (Protime)PT. 26.6 SECONDS (11.7-14.9)
== END 2025-04-25 20:52 | disposition home or self-care (01) ==
LOC: LAB 12:14
PROVIDERS: PCP Family Medicine; Referring Provider Internal Medicine Cardiovascular Disease; Visit Provider Internal Medicine Cardiovascular Disease
DX: Z79.01 Long term (current) use of anticoagulants (principal); Z95.2 Presence of prosthetic heart valve
CPT/HCPCS: 36415; 85610

== ENCOUNTER 2025-06-10 11:49 | Outpatient (RCR) | payer BC, SELFPAY ==
[2025-06-10 12:54] LABS: Prothrombin Time (Protime)PT. 27.6 SECONDS (11.7-14.9)
== END 2025-06-25 18:00 | disposition home or self-care (01) ==
LOC: LAB 11:49
PROVIDERS: PCP Family Medicine; Referring Provider Internal Medicine Cardiovascular Disease; Visit Provider Internal Medicine Cardiovascular Disease
DX: Z79.01 Long term (current) use of anticoagulants (principal); Z95.2 Presence of prosthetic heart valve; Q23.1 Congenital insufficiency of aortic valve
CPT/HCPCS: 36415; 85610

== ENCOUNTER 2025-08-12 11:52 | Outpatient (RCR) | payer BC, SELFPAY ==
[2025-08-12 12:49] LABS: Prothrombin Time (Protime)PT. 24.5 SECONDS (11.7-14.9)
== END 2025-08-24 18:00 | disposition home or self-care (01) ==
LOC: LAB 11:52
PROVIDERS: PCP Family Medicine; Referring Provider Internal Medicine Cardiovascular Disease; Visit Provider Internal Medicine Cardiovascular Disease
DX: Z79.01 Long term (current) use of anticoagulants (principal); Z95.2 Presence of prosthetic heart valve; Q23.1 Congenital insufficiency of aortic valve
CPT/HCPCS: 36415; 85610